=== PATIENT | male | born 1995 | race Caucasian/White ===

== ENCOUNTER 2018-01-18 13:22 | Emergency (ER) | payer OTHER ==
[2018-01-18 13:34] VITALS: BP 141/91
--- NOTE | 2018-01-18 14:36 | UC ---
General HPI - HPI Summary HPI Summary: Pt presents to and reports he has been told by his father he has been intermittently slurring his words and forgetting conversations. Pt states he does not notice, but his father has mentioned it a few times over the last several days. Pt is unsure how long the symptoms last. Pt states last episode occurred over the weekend. Pt without any complaints at time of presentation.Pt states none of the symptoms today. pt states he drove himself to without difficulty. Pt denies IZQUIERDO, vision changes. no fevers, chills, rash. No izquierdo, vision changes. No cp, sob, abd pain. No change in appetite. P Pt states he is here because his father requested he see someone. Pt has not called his PCP. Upon further discussion, pt states he does drink alcohol, at times heavily and he has blacked out in the past. Pt also states he frequently 3-5x/week drinks a benzo slurry that he gets with a friend. PT reports take 0.5-1mg at a time, but may repeat 2-3 times a day Pt states he is currently using clonazepam. Pt states he takes these substances because he "likes how they make him feel." Pt is unsure but "probably" his episodes of slurred speech and memory may have occurred when he has used these substances. Pt states he has only gotten approx 8 hours sleep in 4 days because has been catching up with friends. Pt states he is also concerned he had a concussion. Pt states he has had them 2 x in the past -last was approx 1 year ago. Pt states last week he rolled out of bed when he was sleeping and struck his head. no blood HEENT. no neck or back pain. Pt is home from college. He is waiting for a possible job offer in [place]. Pt without h/o seizures, no incontinence. No extremity weakness or paresthesias. Pt denies any friends or other interactions outside of parents noting his speech or memory. Pt reports no difficulty with texting. Pt has not noted any word finding difficulty. Pt states he does have some recollection of conversations when prompted. After further discussion, pt admits he has tried multiple different substances over the past 1-2 years "just to see" Pt shared with me a list he keeps on his phone of approximately 15 substances he has tried. Pt states he keeps the list just to know what I have tried. He denies currently being under the influence. He denies driving or operating equipment while under the influence. Pt states he uses them with his friends. Pt's has a prescription medications for acne but states does not take it. - History of Current Complaint Chief Complaint: UCGeneralIllness Stated Complaint: SLURRED SPEECH Time Seen by Provider: 01/18/18 14:32 Hx Obtained From: Patient Onset/Duration: Resolved Timing: Intermittent Episodes Lasting: - unknown Current Severity: None Associated Signs & Symptoms: Negative: Agitation - Allergy/Home Medications Allergies/Adverse Reactions: Allergies Allergy/AdvReac Type Severity Reaction Status Date / Time No Known Allergies Allergy Unverified 01/11/14 16:06 PMH/Surg Hx/FS Hx/Imm Hx Previously Healthy: Yes - Surgical History Surgical History: None - Family History Known Family History: Positive: None - Social History Occupation: Student Lives: With Family Alcohol Use: 3 days a week Substance Use Type: Marijuana Smoking Status (MU): Smoker, Current Status Unknown Review of Systems Constitutional: Fatigue Skin: Negative Eyes: Negative ENT: Negative Respiratory: Shortness Of Breath Cardiovascular: Negative Gastrointestinal: Negative Genitourinary: Negative Motor: Negative Neurovascular: Negative Musculoskeletal: Negative Neurological: Other - short term memory forgetfulness, intermittent slurring of words reported Psychological: Negative All Other Systems Reviewed And Are Negative: Yes Physical Exam Triage Information Reviewed: Yes Appearance: Well-Appearing, No Pain Distress, Well-Nourished Vital Signs: Initial Vital Signs Temp 99.1 F 01/18/18 13:28 Pulse 108 01/18/18 13:28 Resp 18 01/18/18 13:28 BP 141/91 01/18/18 13:28 Pulse Ox 100 01/18/18 13:28 Vital Signs Reviewed: Yes Eye Exam: Normal Eyes: Positive: Conjunctiva Clear ENT Exam: Normal ENT: Positive: Normal ENT inspection, Hearing grossly normal, Pharynx normal, TMs normal Dental Exam: Normal Neck exam: Normal Neck: Positive: Supple, Nontender, No Lymphadenopathy Respiratory Exam: Normal Respiratory: Positive: Chest non-tender, Lungs clear, Normal breath sounds, No respiratory distress, No accessory muscle use Cardiovascular Exam: Normal Cardiovascular: Positive: RRR - HR 96 on exam -regular, no mumurs, No Murmur Abdominal Exam: Normal Abdomen Description: Positive: Nontender, No Organomegaly, Soft Bowel Sounds: Positive: Present Musculoskeletal Exam: Normal Musculoskeletal: Positive: Strength Intact Neurological Exam: Normal Neurological: Positive: Other: - NIH 0 CN 2-12 intact and full 5/5 full AROM ext x 4 b/l equal sensation upper and lower ext + naming + recall + fnf + heel constantino neg rhomberg + heel/toe tandem walking + heel walking, toe walking Psychological Exam: Normal Diagnostics - Radiology No standard instances Radiology Interpretation Completed By: Radiologist - Mastoid air cells and paranasal sinuses are unremarkable. IMPRESSION: There is no evidence of intracranial mass or hemorrhage. Mastoid air cells and paranasal sinuses are clear. < Electronically signed by Rachael Mcelroy MD in [place]> 01/18/181512 Dictated By: Rachael Mcelroy MD Dictated Date/Time: 01/18/181512 Transcribed Date/Time: 01/18/181511 Course/Dx - Course Course Of Treatment: Pt presents with report of short term memory impairment and slurring of speech as reported by his father. Pt withotu sx today No complaints at time of exam. After much discussion, pt revealed extensive poly substance trials. pt reports sleep deprivation, ongoing used of ethanol and benzodiazepines. Pt denies mixing substances. Pt reports no use of substances over past 48 hours. Pt denies withdrawal hx. no focal findings on exam. d/w pt at length concerns for substance use, concern for mixing substances related to his personal safetly as well as those around him. will check CT head and labs. recommend close f/u with pcp. recommed 911 and ED eval if symptoms recur at the time of the episode. pt declined resources for substance use. Pt agreed to see pcp. pt stated his parents do not know - I encourage him to discuss with them. Pt encouraged to return or ED with any changes or other concerns. Pt in agreement with plan - Differential Dx - Multi-Symptom Provider Diagnoses: memory changes. slurred speech resolved. poly substance use Discharge - Sign-Out/Discharge Documenting (check all that apply): Discharge/Admit/Transfer - Discharge Plan Condition: Stable Disposition: HOME Patient Education Materials: Benzodiazepine Abuse (ED), Polysubstance Abuse (ED ), Altered Mental Status (ED) Referrals: Андрей Mares MD [Primary Care Provider] - As Soon As Possible (Call today to schedule a follow-up appointment) Additional Instructions: As discussed with you today, your exam was normal and non concerning at this visit. You head CT scan did not reveal any concerning findings You had bloodwork drawn today which may take 1-2 days to come back. If there is any concerning findings, you will receive a call from a care steam shovel operating engineer It is recommended you discontinue use of all substances - alcohol and ilicit substance. If you choose to continue using them, do NOT mix more than one substance at a time. Do not drive, operate machinery while taking them Get plenty of restful sleep Contact your primary doctor TODAY To schedule a follow-up appointment THIS WEEK It is recommended if you symptoms recur, you call 911 or go directly to the emergency department to be evaluated when they are happening. - Billing Disposition and Condition Condition: STABLE Disposition: HOME National Institutes Of Health - NIH Scale Level of Consciousness: Alert/Keenly Responsive Ask Patient the Month and His/Her Age: Both Correct Ask Pt to Open/Close Eyes and Taker Off Braker Machine/Release Non-Paretic Hand: Both Correctly Best Gaze (Only Horizontal Eye Movement): Normal Visual Field Testing: No Visual Loss Facial Paresis-Pt to Smile & Close Eyes or Grimace Symmetry: Normal/Symmetrical Motor Function - Right Arm: No Drift-Holds 10 Seconds Motor Function - Left Arm: No Drift-Holds 10 Seconds Motor Function - Right Leg: No Drift-Holds 10 Seconds Motor Function - Left Leg: No Drift-Holds 10 Seconds Limb Ataxia-Must be out of Proportion to Weakness Present: Absent Sensory (Use Pinprick to Test Arms/Legs/Trunk/Face): Normal Best Language (Describe Picture, Name Items): No Aphasia Dysarthria (Read Several Words): Normal Extinction and Inattention: No Abnormality Total Score: 0
--- NOTE | 2018-01-18 15:16 | RAD ---
Indication: Head injury. CT of the brain was performed without IV contrast. Ventricular structures are midline. No midline shift is noted. The extra-axial spaces are unremarkable. There is no evidence of intracranial mass or hemorrhage. Other high or low density lesions are identified. Mastoid air cells and paranasal sinuses are unremarkable. IMPRESSION: There is no evidence of intracranial mass or hemorrhage. Mastoid air cells and paranasal sinuses are clear.
[2018-01-18 18:42] LABS: ABS Basophils 0 10^3/ul (0-0.2); ABS Eosinophils 0 10^3/ul (0-0.6); ABS Lymphocytes 1.1 10^3/ul (1.0-4.8); ABS Monocytes 0.6 10^3/ul (0-0.8); ABS Neutrophils 6.8 10^3/ul (1.5-7.7); ABS Nucleated RBC 0 10^3/ul; Eosinophil % 0.4 % (0-6); Hematocrit 44 % (42-52); Hemoglobin 14.5 g/dl (14.0-18.0); Lymphocyte % 13.2 % (25-47); Mean Corpuscular HGB Conc 33 g/dl (31-36); Mean Corpuscular Hemoglobin 29 pg (27-31); Mean Corpuscular Volume 86 fL (80-94); Mean Platelet Volume 10.2 um3 (7.4-10.4); Nucleated Red Blood Cells % 0; Platelet Count 211 10^3/ul (150-450); Red Blood Count 5.08 10^6/ul (4.0-5.4); Red Cell Distribution Width 14 % (10.5-15); White Blood Count 8.7 10^3/ul (3.5-10.8)
[2018-01-18 18:58] LABS: EGFR Non-African American 118.1 (>60)
--- NOTE | 2018-01-19 08:46 | UC ---
- Progress Note Progress Note: CBC, CMP, TSH reviewed - all normal No change Discharge - Sign-Out/Discharge Documenting (check all that apply): Post-Discharge Follow Up - Discharge Plan Condition: Stable Disposition: HOME Patient Education Materials: Benzodiazepine Abuse (ED), Polysubstance Abuse (ED ), Altered Mental Status (ED) Referrals: Андрей Mares MD [Primary Care Provider] - As Soon As Possible (Call today to schedule a follow-up appointment) Additional Instructions: As discussed with you today, your exam was normal and non concerning at this visit. You head CT scan did not reveal any concerning findings You had bloodwork drawn today which may take 1-2 days to come back. If there is any concerning findings, you will receive a call from a care clinical team lead It is recommended you discontinue use of all substances - alcohol and ilicit substance. If you choose to continue using them, do NOT mix more than one substance at a time. Do not drive, operate machinery while taking them Get plenty of restful sleep Contact your primary doctor TODAY To schedule a follow-up appointment THIS WEEK It is recommended if you symptoms recur, you call 911 or go directly to the emergency department to be evaluated when they are happening. - Billing Disposition and Condition Condition: STABLE Disposition: HOME
== END 2018-01-18 15:30 | disposition home or self-care (01) ==
LOC: UCEAST 13:22
DX: R41.3 Other amnesia (principal); R47.81 Slurred speech; F13.90 Sedative, hypnotic, or anxiolytic use, unspecified, uncomplicated; Z72.89 Other problems related to lifestyle
CPT/HCPCS: 36415; 70450; 80053; 84443; 85025; 99211; G0463

== ENCOUNTER 2018-01-28 21:30 | Emergency (ER) | payer OTHER ==
[2018-01-28] MEDS ORDERED: NS 0.9% 1000 ML* 1,000 ML IV ONE (22:25)
[2018-01-28] MEDS ORDERED: Metoclopramide IV* 5 MG/ML 2 ML VIAL IV SLOW PU ONE (22:30)
[2018-01-28 22:39] LABS: ABS Basophils 0.1 10^3/ul (0-0.2); ABS Eosinophils 0 10^3/ul (0-0.6); ABS Lymphocytes 0.9 10^3/ul (1.0-4.8); ABS Monocytes 0.7 10^3/ul (0-0.8); ABS Neutrophils 15.3 10^3/ul (1.5-7.7); ABS Nucleated RBC 0 10^3/ul; Eosinophil % 0.1 % (0-6); Hematocrit 43 % (42-52); Hemoglobin 14.5 g/dl (14.0-18.0); Lymphocyte % 5.4 % (25-47); Mean Corpuscular HGB Conc 34 g/dl (31-36); Mean Corpuscular Hemoglobin 29 pg (27-31); Mean Corpuscular Volume 85 fL (80-94); Nucleated Red Blood Cells % 0; Platelet Count 241 10^3/ul (150-450); Red Blood Count 5.09 10^6/ul (4.0-5.4); Red Cell Distribution Width 14 % (10.5-15); White Blood Count 17.1 10^3/ul (3.5-10.8)
[2018-01-28 22:48] LABS: INR 1.06 (0.77-1.02)
[2018-01-28 22:57] LABS: EGFR Non-African American 99.9 (>60)
[2018-01-28 23:38] LABS: Urine Appearance Clear; Urine Blood 1+ (Negative); Urine Color Yellow; Urine Ketones 1+ (Negative); Urine Protein 1+(30 mg/dL) (Negative); Urine Specific Gravity 1.017 (1.010-1.030); Urine Urobilinogen Negative (Negative)
--- NOTE | 2018-01-29 00:28 | ED ---
Yaya Moore Jade, scribed for Hernan Marie MD on 01/28/18 at 2244 . Neurological HPI - HPI Summary HPI Summary: Pt is a 22 y/o male BIBA who presents to the ED s/p seizure at 20:05. As per sister and girlfriend, he fell down in the middle of a conversation and hit his head on the door. He had a tonic clonic seizure for 3-4 minutes, then twitched for another 3-4 minutes. After this, he fell asleep, waking up several times. Pt does not remember seizure, and had urinary incontinence. Pt denies PMHx seizure, but has had several concussions. Pt takes Zoloft, but did not take it today. Narcan was given by EMS. - History of Current Complaint Chief Complaint: EDSeizure Stated Complaint: SEIZURE Time Seen by Provider: 01/28/18 21:59 Hx Obtained From: Patient, Family/Surveyor Instrument Assistant - Girlfriend and sister Onset/Duration: Sudden Onset, Resolved Pain Intensity: 0 Pain Scale Used: 0-10 Numeric Character: Confusion Seizure Character: Total-Clonic Aggravating: Nothing Alleviating: Nothing Associated Signs and Symptoms: Positive: Memory Loss - Allergy/Home Medications Allergies/Adverse Reactions: Allergies Allergy/AdvReac Type Severity Reaction Status Date / Time No Known Allergies Allergy Unverified 01/11/14 16:06 Home Medications: Home Medications Sertraline* [Zoloft*] 25 mg PO DAILY 01/28/18 [History Confirmed 01/28/18] PMH/Surg Hx/FS Hx/Imm Hx Endocrine/Hematology History: Denies: Hx Diabetes Cardiovascular History: Denies: Hx Hypertension, Hx Pacemaker/ICD Sensory History: Denies: Hx Hearing Aid Psychiatric History: Denies: Hx Panic Disorder Infectious Disease History: No Infectious Disease History: Denies: Traveled Outside the [place] in Last 30 Days - Family History Known Family History: Positive: Diabetes - Social History Alcohol Use: Weekly Alcohol Amount: States doesnt remember Substance Use Type: Reports: Marijuana, Other Substance Use Comment - Amount & Last Used: Amphetamines (states doesnt remember ). Smoking Status (MU): Smoker, Current Status Unknown Review of Systems Negative: Fever Positive: incontinence - Urinary Neurological: Other - S/P seizure - confusion / memory loss (doesn't remember incident) All Other Systems Reviewed And Are Negative: Yes Physical Exam - Summary Physical Exam Summary: VITAL SIGNS: Reviewed. GENERAL: ~Patient is a well-developed and nourished male who is lying comfortable in the stretcher. Patient is not in any acute respiratory distress. Urinary incontinence. HEAD AND FACE: No signs of trauma. No ecchymosis, hematomas or skull depressions. No sinus tenderness. EYES: PERRLA, EOMI x 2, No injected conjunctiva, no nystagmus. EARS: Hearing grossly intact. Ear canals and tympanic membranes are within normal limits. MOUTH: Oropharynx within normal limits. NECK: Supple, trachea is midline, no adenopathy, no JVD, no carotid bruit, no c- spine tenderness, neck with full ROM. CHEST: Symmetric, no tenderness at palpation LUNGS: Clear to auscultation bilaterally. No wheezing or crackles. CVS: Regular rate and rhythm, S1 and S2 present, no murmurs or gallops appreciated. ABDOMEN: Soft, non-tender. No signs of distention. No rebound no guarding, and no masses palpated. Bowel sounds are normal. EXTREMITIES: FROM in all major joints, no edema, no cyanosis or clubbing. NEURO: Alert and oriented x 3. No acute neurological deficits. Speech is normal and follows commands. Neuro exam normal. SKIN: Dry and warm. Abrasions over nose and forehead. Triage Information Reviewed: Yes Vital Signs On Initial Exam: Initial Vitals Pulse Resp BP Pulse Ox 86 16 153/93 98 01/28/18 21:38 01/28/18 21:38 01/28/18 21:38 01/28/18 21:38 Vital Signs Reviewed: Yes Diagnostics - Vital Signs Vital Signs Temp Pulse Resp BP Pulse Ox 01/28/18 22:08 74 20 141/110 99 01/28/18 22:02 99.0 F 83 18 141/83 98 01/28/18 22:00 77 23 100 01/28/18 21:44 82 21 99 01/28/18 21:38 86 16 153/93 98 - Laboratory Lab Results: Lab Results 01/28/18 Range/Units 21:41 POC Glucose (mg/dL) 201 H (70-100) mg/dL Result Diagrams: 01/28/18 22:30 01/28/18 22:30 Lab Statement: Any lab studies that have been ordered have been reviewed, and results considered in the medical decision making process. - Radiology CXR Xray Interpretation: No Acute Changes - No acute process. ED physician reviewed radiology report. Pending official report. Radiology Interpretation Completed By: Radiologist - CT CT head CT Interpretation: No Acute Changes - Normal head. ED physician reviewed radiology report. Pending official results. CT Interpretation Completed By: Radiologist - EKG 21:45 Cardiac Rate: NL - 79 bpm EKG Rhythm: Sinus Rhythm EKG Interpretation: Normal axis. Normal interval. No ischemic changes. Re-Evaluation - Re-Evaluation First Eval Re-Evaluation Time: 13:40 Change: Unchanged Comment: No further seizures in the Ed, talked about labs and imaging results. This was his first seizure in his life. Discharged home for neurology appointment on Wednesday. Currently not on anti-seizure meds, advised not to take Zoloft until cleared by neurologist.Not to drive or operate heavy machines. Course/Dx - Course Course Of Treatment: Pt is a 22 y/o male BIBA who presents to the ED s/p seizure at 20:05. As per sister and girlfriend, he fell down in the middle of a conversation and hit his head, and had a tonic clonic seizure for 3-4 minutes, then twitched for another 3-4 minutes. He then fell asleep, waking up several times. Pt does not remember seizure, and had urinary incontinence. Pt denies PMHx seizure, but has had several concussions. Pt takes Zoloft, but did not take it today. Narcan was given by EMS. A CT head reveals no acute process. An EKG reveals normal rate at 79 bpm, sinus rhythm, normal axis, normal intervals, and no ischemic changes. In the ED course, pt was given Reglan and fluids. Patient will be discharged) with a final Dx of new onset seizure. Pt is to hold on taking Zoloft, and is not to drive or operate heavy machinery. He is consult with neurologist on Wednesday. Pt is agreeable with this plan. - Diagnoses Provider Diagnoses: New onset seizure Discharge - Sign-Out/Discharge Documenting (check all that apply): Discharge/Admit/Transfer - Discharge - Discharge Plan Condition: Stable Disposition: HOME Patient Education Materials: New-Onset Seizure in Adults (ED) Referrals: Андрей Mares MD [Primary Care Provider] - 3 Days Julien Dee MD [Medical Doctor] - 3 Days Additional Instructions: RETURN TO EMERGENCY DEPARTMENT FOR ANY NEW OR WORSENING SYMPTOMS. HOLD ON TAKING ZOLOFT. DO NOT DRIVE OR OPERATE HEAVY MACHINES. CONSULT WITH NEUROLOGIST. The documentation as recorded by the Yaya white Jade accurately reflects the service I personally performed and the decisions made by me, Hernan Marie MD.
[2018-01-29 00:33] VITALS: BP 139/81
--- NOTE | 2018-01-29 08:26 | RAD ---
INDICATION: Seizure COMPARISON: None. TECHNIQUE: Single AP portable view of the chest was obtained. FINDINGS: Image quality is compromised due to the relative inferiority of a portable chest x-ray. The heart and mediastinum exhibit normal size and contour. The lungs are grossly clear. There is no evidence of a large pleural effusion. Visualized bones are normal for the patient's age. IMPRESSION: No radiographic evidence for acute cardiopulmonary abnormality on this portable chest x-ray.
--- NOTE | 2018-01-29 08:27 | RAD ---
INDICATION: Suspected seizure COMPARISON: None. TECHNIQUE: Contiguous axial sections of the brain were obtained from the skull base to the vertex without contrast. FINDINGS: The ventricles, cisterns and sulci are within normal limits. The hale-white matter differentiation is adequately maintained and there is no sulcal effacement. No significant focal abnormality or mass effect is present. There is no evidence for intracranial hemorrhage. No significant focal osseous abnormality is present. The visualized portion of the paranasal sinuses appear clear. The mastoid air cells are well aerated bilaterally. IMPRESSION: Normal CT of the brain.
== END 2018-01-29 00:32 | disposition home or self-care (01) ==
LOC: ED 21:30
DX: R56.9 Unspecified convulsions (principal); R41.3 Other amnesia; Z72.0 Tobacco use; R41.0 Disorientation, unspecified
CPT/HCPCS: 36415; 70450; 71045; 80053; 80307; 80320; 81003; 81015; 82550; 83605; 83735; 84443; 85025; 85610; 85730; 87086; 93005; 96361; 96374; 99283; G0480; J2765

== ENCOUNTER 2019-11-20 16:04 | Inpatient (IN) | payer OTHER ==
--- NOTE | 2019-11-20 16:12 | ED ---
Neurological HPI - HPI Summary HPI Summary: Patient is a 24 year-old male arriving via ambulance to [facility] for status epilepticus since 1500. Patient has a history of seizures and is compliant with Depakote prescription. He came back from [place] two days ago after self- quarantining for the last two weeks before returning home. Patient was experiencing his fourth seizure in 30 minutes when EMS arrived, as reported by the family. EMS administered 5mg Versed before placing him on the stretcher. Patient continued seizing, and they administered another 5mg Versed. Patient still seizing so a third dose of Versed was given at 1550 with relief of the convulsions without any seizures since. Capnography initially at 80 but improved to 40. Bilateral nasal airways. Respiratory rate 23 rpm upon arrival. Blood pressure 180/80 mmHg. Sinus tachycardia during transport. Blood glucose 140. Patient reported to have upcoming neurology appointment for re-evaluation of driving as he has not had a seizure in a year. LEVEL 5 CAVEAT SECONDARY TO UNRESPONSIVENESS. History obtained from EMS. Will speak with family (see re-evals). - History of Current Complaint Stated Complaint: UNRESPONSIVE PER EMS Hx Obtained From: Family/Flyer Maker, EMS Hx From Patient Unobtainable Due To: Other - level 5 caveat secondary to unresponsiveness Onset/Duration: Started minutes ago - 1500, Resolved Timing: Constant Onset Severity: Severe Seizure Severity: Status Epilepticus Number of Seizures: 6 Seizure Character: Total-Clonic Alleviating: Other - 15mg Versed total Associated Signs and Symptoms: Positive: Seizure, Decreased Level of Consciousness Related Hx: Medication Comliant, Seizure - Allergy/Home Medications Allergies/Adverse Reactions: Allergies Allergy/AdvReac Type Severity Reaction Status Date / Time No Known Allergies Allergy Verified 03/09/18 10:09 Home Medications: Home Medications Divalproex ER TAB(*) [Depakote ER TAB(*)] 500 mg PO BEDTIME 11/20/19 [History Confirmed 11/20/19] PMH/Surg Hx/FS Hx/Imm Hx Endocrine/Hematology History: Denies: Hx Diabetes Cardiovascular History: Denies: Hx Hypertension - WHITE COAT HYPERTENSION ONLY - NO MEDS, Hx Pacemaker/ICD Respiratory History: Denies: Hx Asthma History: Denies: Hx Renal Disease Sensory History: Denies: Hx Hearing Aid Neurological History: Reports: Hx Seizures Psychiatric History: Denies: Hx Panic Disorder - Surgical History Surgical History: Yes Surgery Procedure, Year, and Place: TUBES IN EARS X 3 - Family History Known Family History: Positive: Diabetes - Social History Alcohol Amount: history of abuse Hx Substance Use: Yes Substance Use Type: Reports: Marijuana, Other Substance Use Comment - Amount & Last Used: history of polysubstance abuse including amphetamines/benzodiazepines Smoking Status (MU): Smoker, Current Status Unknown Review of Systems Neurological/Mental Status: Other - status epilepticus, total clonic All Other Systems Reviewed And Are Negative: No - Comments Additional Review of Systems Comments: LEVEL 5 CAVEAT SECONDARY TO UNRESPONSIVENESS Physical Exam - Summary Physical Exam Summary: General: Well appearing, Unresponsive HENT: Bilateral nasal trumpets in, Atraumatic Eyes: Pupils responsive bilaterally Cardiovascular: Skin is well perfused, Tachycardia at 124 BPM Pulmonary: No respiratory distress, no tachypnea Abdomen: Non-distended Skin: Warm, pink, dry Psych: Unable to assess Neuro: Muscle tone is normal, GCS: 6 (see scale) Triage Information Reviewed: Yes Vital Signs Reviewed: Yes - Mitchell Coma Scale Best Eye Response: 1 - None Best Motor Response: 4 - Withdraws Best Verbal Response: 1 - None Coma Scale Total: 6 Procedures - Procedure Summary Procedure Summary: Intubation: [done at 17:00] Patient under RSI. Video laryngeal glidescope used. Lens occluded, proceeded to use backup device, Justin 3. ET tube advanced, small amount of blood in airway. Patient required second round of RSI due to equipment failure. - Sedation Patient Received Moderate/Deep Sedation with Procedure: No Diagnostics - Laboratory Result Diagrams: 11/20/19 16:25 11/20/19 16:25 Lab Statement: Any lab studies that have been ordered have been reviewed, and results considered in the medical decision making process. - Radiology CXR Radiology Interpretation Completed By: Radiologist Summary of Radiographic Findings: Impression: No active cardiopulmonary disease is noted. Dr. Peralta has reviewed this report. - CT Head/Neck CTA CT Interpretation Completed By: Radiologist Summary of CT Findings: Head Impression: No hemodynamically significant stenosis or large vessel occlusion. Neck Impression: No stenosis (0%) or dissection. Dr. Peralta has reviewed this report. - EKG 1620 Cardiac Rate: Tachycardia - 115 EKG Rhythm: Sinus Tachycardia Summary of EKG Findings: An EKG at 1620 reveals sinus tachycardia at rate of [address] depressions. No STEMI. Dr. Peralta has reviewed and interpreted this EKG. Re-Evaluation - Re-Evaluation First Eval Re-Evaluation Time: 16:35 Comment: Patient agitated, swinging left arm, right arm appears to hemiparetic. Second Eval Re-Evaluation Time: 16:45 Comment: Spoke with the patient's family concerning his presentation today. Family reports that at approximately 1500, the patient had 3 seizures at home, full body tonal-clonic activity from which he did not recover. On October 30, he saw his new neurologist in [place] and was cleared to drive. Parents state good medication compliance, taking Depakote regularly. Had two glasses of wine two nights ago but doesnt drink often. Remote history of benzodiazepine abuse. Regular marijuana use. Has otherwise been in good health. Just got back from [place] on 11/18/2019. He was quarantining himself for the last two weeks to protect his parents. Received verbal consent from parents for intubation. Third Eval Re-Evaluation Time: 17:35 Comment: Patient still thrashing around, increased Propofol Fourth Eval Re-Evaluation Time: 18:40 Comment: Called back to room. Patient is still very agitated, and he apparently was agitated in CT. They are attempting to place a lim and perform EEG. Will administer paralytics at this point, Versed and Versed drip. Fifth Eval Re-Evaluation Time: 21:00 Change: Unchanged - Parents note girlfriend reports highly agitated post ictal states in the past. Also Keppra makes him irritable in previous situations. Course/Dx - Course Course Of Treatment: 24 year-old male who has history of seizures but none in the last year with Depakote compliance arriving via ambulance for multiple seizures occurring for 30 minutes before EMS arrived. Subsequent seizures during transport resolving only after third dose of 5mg Versed administered en route. Recent travel from [place] with return 11/18/2019 with self-isolation for last two weeks to keep parents safe. EMS states glucose 140, blood pressure 140, respiratory rate 23, sinus tachycardia. On physical exam in the ED, pupils are responsive bilaterally, muscle tone is normal, heart rate is 124, bilateral nasal trumpets. Family reports 3 tonic clonic seizures prior to EMS arriving. Good Depakote compliance, no recent illnesses, history of drug use, cleared to drive by neurologist in [place] on 10/31/2019. Patient placed on alarm security or surveillance monitor. IV access obtained. Patient received Ativan, Propofol, and Fentanyl. Patient also given 2g Keppra as recommended by Dr. Jackson from neurology. He also recommends EEG which he will call in the tech for. We will consider transfer as needed depending on results. Blood work significant for WBCs 20.7, absolute neutrophils 13.7, absolute lymphocytes 6.0, INR 1.12, chloride 95, carbon dioxide 12, creatinine 1.34, glucose 191, lactic acid 20. Valproic acid 29. Patient given Valproic acid. ABG shows pH 7.28, pO2 278, HCO3 17.9, O2 saturation 100, base excess -9. EKG at 1620 reveals sinus tachycardia at rate of 115 BPM, lateral ST depressions. Patient agitated and intubated with RSI ( see procedure note). Patients family gave verbal consent for intubation. Patient received second round of RSI due to equipment failure. CXR is negative for acute pathology. Dr. Dodd, the patients PCP, states significant alcohol abuse issues and polysubstance abuse including amphetamines. Serum alcohol <10. Patient continues to be agitated even in CT, plan for lim placement and EEG. Will administer paralytics at this point, Versed and Versed drip. Head/Neck CTA is negative for acute abnormality. Urinalysis shows 1+ ketones but is otherwise negative. Toxicology screen positive for benzodiazepines and cannabinoids. Dr. Jackson reports no active seizure activity on the EEG. 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 There is no need for transfer at this time. We agreed on ICU monitoring for this patient. Dr. Small from the hospitalist services accepts the patient for admission to the ICU. Dr. Delaney, chef under, made aware of the patient. Plan of care discussed with patients family. - Diagnoses Provider Diagnoses: Status epilepticus, Seizure secondary to subtherapeutic anticonvulsant medication - Physician Notifications Discussed Care Of Patient With: Marie Jackson - neurologist Time Discussed With Above Provider: 16:30 Instructed by Provider To: Other - I discussed the patient's case with Dr. Jackson , and he will come to the ED to evaluate the patient. He will call the technical sales support specialist to come in. Dr. Jackson also recommends urine tox screen and Keppra. I spoke with Dr. Dodd, the patient's PCP, and she states that the patient has a significant alcohol and polysubstance abuse history, including amphetamines [18: 00]. Dr. Jackson states the EEG results do not warrant transfer; there is no active seizing, likely Karthik's paralysis. We agree on ICU monitoring [20:05]. Dr. Small from the hospitalist services accepts the patient for admission to the ICU [20:12]. Dr. Delaney, chef under, made aware of the patient [20:15]. - Critical Care Time Critical Care Time: 75-104 min - 90 MINUTES Discharge ED - Sign-Out/Discharge Documenting (check all that apply): Patient Departure - Patient accepted for admission by Dr. Small to ICU. - Discharge Plan Condition: Stable Disposition: ADMITTED TO [facility] Referrals: Louisa Dodd MD [Primary Care Provider] - - Billing Disposition and Condition Condition: STABLE Disposition: Admitted to [facility] - Attestation Statements Document Initiated by Radha: Yes Documenting Scribe: Dolores Dorsey Provider For Whom Davide is Documenting (Include Credential): Karthik Peralta MD Scribe Attestation: I, Dolores Dorsey, scribed for Karthik Peralta MD on 11/20/19 at 2118. Scribe Documentation Reviewed: Yes Provider Attestation: The documentation as recorded by the Dolores white accurately reflects the service I personally performed and the decisions made by me, Karthik Peralta MD Status of Scribe Document: Viewed
[2019-11-20] MEDS ORDERED: levETIRAcetam 1000MG IVPREMIX* 1,000 MG/100 ML BAG IVPB ONE ×2 (16:27→16:50)
[2019-11-20] MEDS ORDERED: LORazepam INJ* 2 MG/ML 1 ML VIAL IV PUSH ONE (16:30)
[2019-11-20] MEDS ORDERED: Lorazepam PYXIS KEY PRN (16:30)
[2019-11-20 16:39] LABS: Hematocrit 46 % (42-52); Hemoglobin 14.9 g/dL (14.0-18.0); Mean Corpuscular HGB Conc 32 g/dL (31-36); Mean Corpuscular Hemoglobin 29 pg (27-31); Mean Corpuscular Volume 91 fL (80-94); Mean Platelet Volume 10.7 fL (7.4-10.4); Platelet Count 291 10^3/uL (150-450); Red Blood Count 5.11 10^6 /uL (4.18-5.48); Red Cell Distribution Width 14 % (10-15); White Blood Count 20.7 10^3/uL (3.5-10.8)
[2019-11-20 16:45] LABS: INR 1.12 (0.82-1.09)
[2019-11-20] MEDS ORDERED: Propofol* 100 ML ONE ×3 (16:47→23:01)
[2019-11-20] MEDS ORDERED: Succinylcholine* 20 MG/ML 10 ML VIAL IV ONE ×2 (16:47→18:50)
[2019-11-20] MEDS ORDERED: Propofol* 10 MG/ML 20 ML BTL IV PUSH ONE ×2 (16:47→18:49)
[2019-11-20 16:55] LABS: ALT 15 U/L (7-52); AST 30 U/L (13-39); Albumin 5.2 g/dL (3.2-5.2); Albumin/Globulin Ratio 1.8 (1-3); Alkaline Phosphatase 65 U/L (34-104); BUN/Creatinine Ratio 14.2 (8-20); Blood Urea Nitrogen 19 mg/dL (6-24); Calcium 10.2 mg/dL (8.6-10.3); Chloride 95 mmol/L (101-111); EGFR African American 80.7 (>60); EGFR Non-African American 66.7 (>60); Globulin 2.9 g/dL (2-4); Glucose 191 mg/dL (70-100); Magnesium 2.7 mg/dL (1.9-2.7); Potassium 4.3 mmol/L (3.5-5.0); Sodium 136 mmol/L (135-145); Total Protein 8.1 g/dL (6.4-8.9)
[2019-11-20 17:03] LABS: Anion Gap 29 mmol/L (2-11); CO2 Carbon Dioxide 12 mmol/L (22-32)
[2019-11-20] MEDS: Propofol* 100 ML IV ONE ×2 (17:07→23:04)
[2019-11-20 17:10] LABS: ABS Basophils 0.1 10^3/ul (0-0.2); ABS Eosinophils 0.1 10^3/ul (0-0.6); ABS Monocytes 0.9 10^3/ul (0-0.8); ABS Neutrophils 13.7 10^3/ul (1.5-7.7); Eosinophil % 0.3 %; Lymphocyte % 29.1 %; Nucleated Red Blood Cells % 0.1
[2019-11-20] MEDS ORDERED: fentaNYL* 50 MCG/ML 2 ML VIAL (100 MCG VIAL) IV SLOW PU ONE (17:33)
[2019-11-20] MEDS ORDERED: fentaNYL INFUSION 50 MCG/ML* 2,500 MCG/50 ML BAG IV SCH (18:00)
[2019-11-20] MEDS ORDERED: Valproic Acid IV(*) 500 MG in NS 0.9% 100 ML* 100 ML IVPB ONE (18:03)
[2019-11-20] MEDS ORDERED: Iohexol 350* (CONTRAST) 500 ML MDV IV ONE (18:07)
[2019-11-20 18:48] LABS: Alcohol < 10 mg/dL (<10)
[2019-11-20] MEDS ORDERED: Rocuronium* 10 MG/ML VIAL IV ONE (18:54)
[2019-11-20] MEDS ORDERED: Midazolam* 1 MG/ML 5 ML VIAL (5 MG) IV SLOW PU ONE (18:54)
[2019-11-20] MEDS: Midazolam IV for DRIP* 100 MG in NS 0.9% 100 ML* 80 ML IV SCH (19:30)
[2019-11-20 19:34] LABS: Urine Appearance Turbid; Urine Bilirubin Negative (Negative); Urine Blood Negative (Negative); Urine Color Straw; Urine Glucose Negative (Negative); Urine Ketones 1+ (Negative); Urine Nitrite Negative (Negative); Urine Protein Negative (Negative); Urine Specific Gravity 1.019 (1.010-1.030); Urine Urobilinogen Negative (Negative)
[2019-11-20 19:53] LABS: Urine Benzodiazepine Screen Presumptive Positive (None Detect); Urine Opiates Screen None Detected (None Detect)
[2019-11-20] MEDS ORDERED: NS 0.9% 1000 ML** 2,000 ML IV ONE (20:05)
[2019-11-20 20:21] LABS: Creatine Kinase 132 U/L (10-223)
[2019-11-20 21:17] LABS: Phosphorus 10.5 mg/dL (2.5-5.0)
--- NOTE | 2019-11-20 21:25 | EEG ---
ELECTROENCEPHALOGRAPHY: DATE OF STUDY: 11/20/19 - ROOM #ICU-15 ORDERED BY: Marie Jackson MD CLINICAL PROBLEM: A 24-year-old man who presented with prolonged generalized convulsions. This EEG was obtained to evaluate for nonconvulsive status epilepticus. MEDICATIONS: 1. Propofol. 2. Versed. 3. Fentanyl. 4. Keppra. 5. Depakote. DURATION OF THE [id number]. CLINICAL STATE: Encephalopathic. REPORT: The most prominent feature of this recording included diffuse, polymorphic, medium to higher amplitude 2-9 Hz alpha, theta, and delta range frequencies with superimposed 1-2 Hz seen diffusely throughout the recording. Centrally, there were sleep spindles and vertex waves seen intermittently throughout the recording, which suggest stage 2 sleep. Furthermore, waking background was not seen during the recording, but there was some reactivity with the EEG background. There were no electrographic seizures in terms of rhythmicity or evolution of the frequency. Photic stimulation and hyperventilation were not performed. EEG showed sinus tachycardia. CLINICAL IMPRESSION: This is an abnormal EEG due to the presence of diffuse slowing of the background with no evidence of electrographic seizures. These findings are suggestive of mild to moderate diffuse encephalopathy which can be due to sedation and postictal state. [id number]/[facility] #: [id number] [facility]
[2019-11-20] MEDS: fentaNYL INFUSION 50 MCG/ML* 2,500 MCG/50 ML BAG IV SCH (22:15)
[2019-11-21] MEDS: CHLORHEXADINE (PERIDEX) VENT ORAL CARE TOPICAL SCH ×8 (00:16→23:35)
--- NOTE | 2019-11-21 00:24 | CONS ---
NEUROLOGY CONSULTATION NOTE: DATE OF CONSULT: 11/20/19 CONSULTING PROVIDER: Dr. Peralta. REASON FOR CONSULT: Status epilepticus. CHIEF COMPLAINT: Seizures. The history was obtained by the patient's mother, father, and sister Estela via telephone HISTORY OF PRESENT ILLNESS: Mr. 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 The patient has been seizure-free for the past 1 year on extended release Depakote 500 mg twice daily. . The patient was in [place] visiting his long-standing girlfriend. He has been quarantined for 14 days in [place], just to be safe before driving back home. He recently drove to [place] where he resides. He is staying with his parents while trying to find a job. According to his mother, New was in normal state of health as of two days ago (Wednesday). He was reported to be very pleasant, went on a car ride with his mother, and he seemed normal and like his usual self. He is applying to jobs around the area and he has been working on new [employer] to continue improving his skills. He drinks occasionally and smokes marijuana regularly. According to the family, there is no history of polysubstance abuse. The patient recently saw a neurologist 3 weeks ago in [place], who cleared him to start driving again. The patient had multiple seizures witnessed by the patient's sister, Estela today. According to Estela, the patient was coming up the stairs to get some water. After he drank water, he walked towards the door to head back down stairs when he suddenly began screaming out loud and then stumbled over to the wall and leaned over on his sister. He never fell. He never hit his head. He began convulsing for at least 3 minutes. He had continuous shaking of both legs. He then had a postictal confusion and minimal responsiveness for 8 to 10 minutes. Following that, he had seizure 2 and seizure 3 back to back, where he was having generalized convulsions, eyes deviating towards the right, head deviating towards the right, uncontrollable shaking of the extremities, urinary incontinence, for approximately 18 to 20 minutes. EMS was contacted and the patient continued to have seizures in the EMS. It was estimated that the patient had at least 30-40 minutes of generalized convulsions. Via EMS, he received 5 mg of Versed, but he continued to have seizures. His heart rate was significantly high. His blood pressure was elevated. His blood glucose was 140. He was unresponsive. He was loaded with Ativan and repeated doses of Versed in the ED with minimal effect. He was loaded with the 1000 mg of levetiracetam and then once I was consulted I gave him another gram of levetiracetam for a total of 2 g. The patient had received also valproic acid 500 mg as well as multiple doses of lorazepam. Eventually, due to the patient's intermittent seizures that he was still having, rigors and tachycardia, he was intubated and started on propofol and Versed. He required muscle paralytics, so he can have the EEG as he was still moving despite max dose of propofol and Versed. The CT and the CTA head and neck showed no evidence of acute intracranial abnormality. He had an EEG that showed diffuse slowing suggestive of mild encephalopathy with some sleep spindles recorded suggesting that the patient was in stage II sleep. There was no electrographic seizures. Laboratory: The patient had an white count of 20,000, and a lactic acid of 20. Again, the family noted that the patient never had any fevers, complained of headaches, prior to having this breakthrough seizure. Urine tox screen showed positive for benzodiazepines and cannabinoids. Please note that the patient did receive benzodiazepine en route. His valproic acid level as low at 29. Seizure history and risk factors: The patient had head injury 7 years ago where he hit his head on the cement after a fall bumping into the back of the head. Following that he was seeing spots of light. Three to four years later, he developed his first seizure. He did have an MRI of the brain as well as an EEG in 2018 that showed no evidence of acute intracranial abnormalities. He was kept on Depakote for suspected seizures. The patient was on Keppra at some point and was switched to Depakote because he did not like how he felt while on Keppra. The exact side effect related to Keppra is unknown from the family. PAST MEDICAL HISTORY: Seizure disorder. PAST SURGICAL HISTORY: None. MEDICATIONS: Depakote 500 mg twice daily. FAMILY HISTORY: Mother had petit mal seizures as a child. SOCIAL HISTORY: He lives with his parents. He is looking for a job. Smokes marijuana. He drinks alcohol occasionally. There were some report by the patient's PCP where the patient does have a history of alcohol abuse and he also abuses amphetamines. REVIEW OF SYSTEMS: Unable to obtain. PHYSICAL EXAMINATION: Vitals: Temperature of 99.5, pulse heart rate of 87, respiratory rate of 18, oxygen saturation of 100, blood pressure of 118/70. General: An ill-appearing man, in no acute distress. He is intubated. Head: Atraumatic, normocephalic without any obvious abnormality. Neck is supple and symmetrical with no carotid bruit. Cardiovascular: Sinus tachycardia. No murmurs. Pulmonary: Clear to auscultation bilaterally. Extremities: No hammertoes or high arches. Skin: No skin lesions or lacerations. Psych: Deferred. Neurological Examination: The patient was seen prior to intubation, but then immediately was intubated. Pupils equal, round, reactive to light. Extraocular muscles are intact. There is no facial asymmetry. The patient has weakness on the right upper and right lower extremities. He is spontaneously moving the left and can move the right upper extremity, but definitely no to command. He was purposeful in trying to remove the nasal trumpet. ASSESSMENT AND RECOMMENDATIONS: Mr. New Gomes is a 24-year-old man who presented with status epilepticus and right hemiparesis suspect Karthik's paralysis. The etiology is unclear, but possible he is on low dose of his seizure medications, sleep deprivation, or poor seizure medication compliance are potential causes. Other potential causes include drug toxication, possible synthetic marijuana use as he smokes marijuana daily. These are all assumption and not confirmed from the family's history. The patient is currently not in nonconvulsive status epilepticus. He does not have signs of infection as he is afebrile and had no preceding illness. I recommend admitting the patient to the ICU. Please repeat an EEG in the morning. I will start the patient on Depakote 1000 mg loading dose now and to continue him on 500 mg t.i.d. Wean off the sedation after the EEG tomorrow to see if he can follow command. If he has recurrence in seizures or he is not recovering fast enough or if he persist to have right hemiparesis, I recommend doing an MRI of the brain without contrast to evaluate for PRES. Please repeat a lactic acid level. He does not have any evidence of significant electrolyte imbalance to suspect other causes for his seizures. Please obtain a phosphorus level, which I have ordered. I will continue to follow. I discussed these recommendations with Dr. Peralta and Dr. Delaney. Please provide frequent updates to the family as they are extremely concerned that they cannot be at bedside with the patient at this time. I will also contact the family for update tomorrow from the neurology standpoint. Please contact me any time for any questions or concerns. [id number]/[facility] #: [id number] ANNE MARIE
[2019-11-21] MEDS: NS 0.9% 1000 ML** 1,000 ML IV SCH ×3 (00:38→17:34)
[2019-11-21] MEDS: Propofol* 100 ML IV ONE (01:11)
[2019-11-21] MEDS ORDERED: Propofol* 100 ML ONE (03:11)
[2019-11-21] MEDS: Propofol* 100 ML IV SCH ×8 (03:55→23:31)
[2019-11-21] MEDS ORDERED: Valproic Acid IV(*) 500 MG in NS 0.9% 100 ML* 100 ML IVPB SCH (04:00)
--- NOTE | 2019-11-21 04:44 | HP ---
HISTORY AND PHYSICAL: DATE OF ADMISSION: HISTORY OF PRESENT ILLNESS: This is a 24-year-old male with past medical history of seizures, polysubstance abuse presented to the ED with chief complaint of status epilepticus at 1500 hours. The patient as already stated has a history of seizures and is said to be compliant with Depakote prescription 500 mg at bedtime. It was stated that the patient came back from [place] 2 days ago after self-quarantining for the last 2 weeks before returning home. It was also stated that the patient had 3 seizures at home and then when EMS was called, he had one when EMS was attending to him in the vehicle and he came to the ED. EMS administered 5 mg Versed before placing him on the stretcher. The patient continued to seize and administered a second dose , the patient was still seizing, and administered the third dose at 1500 with relief of the convulsions. When the patient arrived in the ED, it was also reported that he had another seizure in the ED and a total of 5 seizures and since then, there have not been any seizure after when he seized in the ED. Blood pressure on arrival 180/80. EMS stated that he had a sinus tachycardia during transportation to the ED with blood glucose of 140. It was reported that the patient was looking forward to an appointment that was booked with Neurology for reevaluation of his driving status as he has not had any seizure in the past year. History was from record, as the patient was intubated and fully sedated. In the ED, Neurology was consulted, who gave the order to give the patient Keppra. 2 g of Keppra IV were giving total in the order of 1 g after each and the patient was placed on Versed drip, propofol drip, and a fentanyl drip in order to sedate him as he was highly agitated. Toxicology positive for benzodiazepines and cannabinoids. Neurology ordered an EEG and examination on arrival was started. 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 PAST MEDICAL HISTORY: Seizure disorder, polysubstance abuse, alcohol abuse, current smoker. PAST SURGICAL HISTORY: Tubes in ears x3. HOME MEDICATION: Depakote ER 500 mg at bedtime. ALLERGIES: No known drug allergies. FAMILY HISTORY: Positive for diabetes. SOCIAL HISTORY: Alcohol use: Amount unknown. Substance use: Marijuana, amphetamines. He is a smoker; current status, unknown. REVIEW OF SYSTEMS: Negative for fever. Status post seizure, confusion, postictal state, decreased level of consciousness, status epilepticus, tonic clonic. All other systems reviewed are negative or as recorded in HPI. PHYSICAL EXAMINATION GENERAL: Sedated, intubated, but well appearing and unresponsive. VITAL SIGNS: Temperature 98.1, heart rate 86, respiratory rate 17, O2 saturation 99%, blood pressure 110/51. HEAD and FACE: No signs of trauma. No ecchymosis. No hematomas or skull depressions. No sinus tenderness. Pupils responsive bilaterally. No injected conjunctivae. Mouth, the patient intubated. NECK: Supple. No JVD. No carotid bruit. CHEST: Chest clear to auscultation bilaterally. No wheezing, no crackles. CARDIOVASCULAR: S1, S2 heard. Regular rate and rhythm. No murmurs or gallops are appreciated. ABDOMEN: Soft, nondistended, nontender. No palpable masses. Bowel sounds normal in all 4 quadrants. NEUROLOGIC: Muscle tone is normal. PSYCHIATRIC: Unable to assess. SKIN: Warm, dry, no rashes. DIAGNOSTIC STUDIES/LAB DATA: Hematology: WBC 20.7, RBC 5.11, hemoglobin 14.9 , hematocrit 46, MCV 91, MCH 29, MCHC 32, RDW 14, platelet count 291, MPV 10.7, neutrophils 65.9, absolute neutrophils 13.7, absolute lymphocytes 6.0, absolute monocytes 0.9. Hematopathologist's comments pending. Chemistry: Sodium 136, potassium 4.3, chloride 95, carbon dioxide 20, anion gap 29, BUN 19, creatinine 1.34, estimated GFR non- 56.7, BUN and creatinine ratio of 1.42 , glucose 191, lactic acid 20.0, calcium 10.2, phosphorus 10.5, magnesium 2.7. Total bilirubin 0.7, AST 30, ALT 15, alkaline phosphatase 16, total creatine kinase 132, total protein 8.1, albumin 5.2, globulin 2.9. Blood gas: Initial ABG, pH 7.28, repeat after intubation 7.33; PCO2 initial 36, repeat after intubation 34; PO2 initial 278, after intubation 178; bicarbonate initial 17.9, repeat after intubation 19.4; O2 saturation 100%; base excess initial -9.0, repeat after intubation -7.1. Coagulation studies: INR 1.12. Toxicology: Benzodiazepine presently positive, cannabinoids presently positive, valproic acid 29.0. Opiates, other barbiturates, phencyclidine, amphetamine, cocaine nondetected. Serum alcohol level less than 10. Electroencephalogram, clinical impression: This is an abnormal EEG in a comatose patient, who recently had status epilepticus that showed diffuse slowing of the background with no evidence of electrographic seizures. These findings are suggestive of [id number] diffuse encephalopathy, which can be due to postictal state. Head CTA, impression: No stenosis or dissection. EKG showed sinus tachy at 99, borderline ST depression in the lateral leads. ASSESSMENT AND PLAN: A 24-year-old male with a known history of seizures, stated to be compliant with his medication of 500 mg Depakote at bedtime and also a known history of polysubstance abuse presented to the ED with chief complaint of multiple seizures occurring for 30 minutes before arrival to the ED, subsequent seizure during transportation resolved after third dose of 5 mg Versed was administered. Recent travel from [place] and the return with self- isolation for the past 2 weeks for COVID. The patient will be admitted to the unit with the diagnosis of status epilepticus, seizure disorder, leukocytosis, and dehydration. For the status epilepticus and seizure, the patient already received 2 g of Keppra IV per Neurology recommendations. The patient is already sedated with propofol, Versed, and also receiving fentanyl drip. We will continue with the patient's home med that I will give IV 500 mg b.i.d. and follow up with Neurology evaluation. Follow up with a.m. labs. The patient will be n.p.o. at the moment and will be receiving IV fluid at maintenance dose of 125 mL/hour, already received 2 L bolus in the ED. Monitor lactic acidosis. For leukocytosis, no source of infection is noted at this moment. Leukocytosis could be reactionary to seizure, as a result of polysubstance abuse. We will monitor. No pyrexia noted. Polysubstance abuse. torpedo worker consult to discuss situation when the patient is awake. The patient will be full code at this time. Diet: Regular diet when the patient will take p.o. The patient is n.p.o. at the moment. DVT prophylaxis: SCDs. Fluids and electrolytes: Replete as needed. The patient is COVID rule out. We will maintain on isolation per protocol. TIME SPENT: Time spent on this admission greater than 65 minutes. [id number]/[facility] [place] #: [id number] ANNE MARIE
[2019-11-21 05:11] LABS: ABS Basophils 0.1 10^3/ul (0-0.2); ABS Lymphocytes 2.1 10^3/ul (1.0-4.8); ABS Monocytes 1.5 10^3/ul (0-0.8); ABS Neutrophils 9.6 10^3/ul (1.5-7.7); Hematocrit 41 % (42-52); Hemoglobin 13.4 g/dL (14.0-18.0); Lymphocyte % 16.1 %; Mean Corpuscular HGB Conc 33 g/dL (31-36); Mean Corpuscular Hemoglobin 29 pg (27-31); Mean Corpuscular Volume 87 fL (80-94); Mean Platelet Volume 10.1 fL (7.4-10.4); Platelet Count 198 10^3/uL (150-450); Red Blood Count 4.65 10^6 /uL (4.18-5.48); Red Cell Distribution Width 14 % (10-15); White Blood Count 13.3 10^3/uL (3.5-10.8)
[2019-11-21 05:28] LABS: BUN/Creatinine Ratio 15.9 (8-20); Calcium 8.6 mg/dL (8.6-10.3); EGFR Non-African American 108.3 (>60); Magnesium 2.5 mg/dL (1.9-2.7); Phosphorus 4.7 mg/dL (2.5-5.0); Potassium 4.3 mmol/L (3.5-5.0)
--- NOTE | 2019-11-21 08:56 | PN ---
Subjective Date of Service: 11/21/19 Length of Stay: 1 Days Neurology is following for status epilepticus. Interval History: On isolation due to pending COVID testing. PPE utilized to examine the patient today. He seems to be comfortable. He is no longer shaking, trembling, or uncontrollably moving his head. He is on Propofol, Versed, and fentanyl. After holding propofol for 5 minutes, he was moving his head slowly and opening his eyes. He had no reported convulsions yesterday. Review of Systems: The patient cannot provide a ROS. Objective Active Medications: Chlorhexidine Gluconate (Peridex Mouth Wash 0.12%*) 15 ml [facility]H [facility] Last Admin: 11/21/19 08:20 Dose: 15 ml Midazolam HCl 100 mg/ Sodium (Chloride) 100 mls @ 2.5 mls/hr IV .PER PROTOCOL [facility]; Protocol Last Admin: 11/20/19 19:30 Dose: 2.5 mls/hr Sodium Chloride (Ns 0.9% 1000 Ml) 1,000 mls @ 125 mls/hr IV PER RATE [facility] Last Admin: 11/21/19 08:20 Dose: 125 mls/hr Levetiracetam (Keppra Iv Premix*) 500 mg in 100 mls @ 400 mls/hr IV Q12H SARIKA Last Admin: 11/21/19 08:20 Dose: 400 mls/hr Propofol (Diprivan*) 100 mls @ 8.172 mls/hr IV .PER [facility]OL [facility]; Protocol Last Admin: 11/21/19 06:32 Dose: 32.8 mls/hr Fentanyl Citrate (Fentanyl Infusion Bag 50 Mcg/Ml 50 Ml) 2,500 mcg in 50 mls @ 0.25 mls/hr IV .PER [facility]OCOL [facility]; Protocol Last Admin: 11/20/19 22:15 Dose: 0.3 mls/hr Levocarnitine 6 gm/ Sodium (Chloride) 1,030 mls @ 2,000 mls/hr IV BID [facility] Stop: 11/22/19 09:01 Vital Signs 11/20/19 11/20/19 11/20/19 16:07 16:13 16:14 Temperature 98 F Pulse Rate 126 124 122 Respiratory 23 23 Rate Blood Pressure 160/74 160/74 (mmHg) O2 Sat by Pulse 98 100 100 Oximetry 0311/20/19 11/20/19 16:39 17:00 17:09 Temperature Pulse Rate 140 118 132 Respiratory 23 29 19 Rate Blood Pressure 164/105 183/116 (mmHg) O2 Sat by Pulse 95 100 98 Oximetry 11/20/19 11/20/19 11/20/19 17:19 17:27 17:29 Temperature Pulse Rate 127 112 112 Respiratory Rate Blood Pressure 120/86 136/87 135/66 (mmHg) O2 Sat by Pulse 99 99 99 Oximetry 11/20/19 11/20/19 11/20/19 17:31 17:34 17:35 Temperature Pulse Rate 125 107 Respiratory Rate Blood Pressure 116/94 134/105 138/72 (mmHg) O2 Sat by Pulse 99 96 Oximetry 11/20/19 11/20/19 11/20/19 17:39 17:40 17:41 Temperature Pulse Rate 94 95 Respiratory 22 Rate Blood Pressure 118/63 130/61 (mmHg) O2 Sat by Pulse 99 99 Oximetry 11/20/19 11/20/19 11/20/19 17:47 17:49 17:54 Temperature Pulse Rate 94 93 Respiratory 19 Rate Blood Pressure 110/58 123/57 (mmHg) O2 Sat by Pulse 99 97 Oximetry 11/20/19 11/20/19 11/20/19 17:59 18:01 18:04 Temperature Pulse Rate 89 90 91 Respiratory Rate Blood Pressure 137/62 122/58 (mmHg) O2 Sat by Pulse 100 100 100 Oximetry 11/20/19 11/20/19 11/20/19 19:00 19:04 19:08 Temperature Pulse Rate 87 128 123 Respiratory Rate Blood Pressure 169/102 174/99 (mmHg) O2 Sat by Pulse 100 100 100 Oximetry 11/20/19 11/20/19 11/20/19 19:09 19:14 19:19 Temperature Pulse Rate 118 139 138 Respiratory Rate Blood Pressure 177/87 167/97 167/104 (mmHg) O2 Sat by Pulse 100 100 100 Oximetry 11/20/19 11/20/19 11/20/19 19:29 19:34 19:39 Temperature Pulse Rate 138 121 106 Respiratory Rate Blood Pressure 185/104 171/99 162/94 (mmHg) O2 Sat by Pulse 100 100 100 Oximetry 11/20/19 11/20/19 11/20/19 19:45 19:49 19:53 Temperature 97.1 F Pulse Rate 100 98 Respiratory Rate Blood Pressure 157/88 148/79 (mmHg) O2 Sat by Pulse 100 100 Oximetry 11/20/19 11/20/19 11/20/19 19:59 20:01 20:05 Temperature 99.3 F 99.3 F 99.5 F Pulse Rate 97 91 114 Respiratory Rate Blood Pressure 135/81 138/94 (mmHg) O2 Sat by Pulse 100 100 100 Oximetry 11/20/19 11/20/19 11/20/19 20:09 20:14 20:20 Temperature 99.5 F 99.5 F 99.5 F Pulse Rate 91 88 104 Respiratory Rate Blood Pressure 131/80 127/71 132/86 (mmHg) O2 Sat by Pulse 100 100 99 Oximetry 11/20/19 11/20/19 11/20/19 20:24 20:29 20:35 Temperature 99.5 F 99.5 F 99.5 F Pulse Rate 87 86 86 Respiratory Rate Blood Pressure 130/74 135/75 124/76 (mmHg) O2 Sat by Pulse 100 100 100 Oximetry 11/20/19 11/20/19 11/20/19 20:39 20:44 20:50 Temperature 99.5 F 99.3 F 99.3 F Pulse Rate 87 82 85 Respiratory Rate Blood Pressure 118/70 130/78 131/69 (mmHg) O2 Sat by Pulse 100 100 100 Oximetry 11/20/19 11/20/19 11/20/19 20:55 21:00 21:01 Temperature 99.3 F 99.1 F 99.1 F Pulse Rate 86 86 86 Respiratory Rate Blood Pressure 114/68 123/65 (mmHg) O2 Sat by Pulse 100 100 100 Oximetry 11/20/19 11/20/19 11/20/19 21:05 21:10 21:16 Temperature 99.1 F 99.1 F 99.1 F Pulse Rate 86 86 105 Respiratory Rate Blood Pressure 120/65 120/65 144/90 (mmHg) O2 Sat by Pulse 100 100 86 Oximetry 11/20/19 11/20/19 11/20/19 21:20 21:22 21:25 Temperature 99.3 F 99.9 F 99.5 F Pulse Rate 101 84 89 Respiratory 14 Rate Blood Pressure 142/88 121/76 120/72 (mmHg) O2 Sat by Pulse 98 100 100 Oximetry 11/20/19 11/20/1920 21:30 21:35 21:40 Temperature 99.5 F 99.5 F 99.3 F Pulse Rate 86 89 88 Respiratory Rate Blood Pressure 118/66 120/59 124/62 (mmHg) O2 Sat by Pulse 100 100 100 Oximetry 11/20/19 11/20/19 11/20/19 21:45 21:50 21:55 Temperature 99.3 F 99.1 F 99.1 F Pulse Rate 87 89 88 Respiratory Rate Blood Pressure 125/60 118/53 117/57 (mmHg) O2 Sat by Pulse 100 100 100 Oximetry 11/20/19 11/20/19 11/20/19 22:13 22:15 22:45 Temperature 99.9 F 99.5 F Pulse Rate 85 100 85 Respiratory 17 Rate Blood Pressure 121/76 136/73 (mmHg) O2 Sat by Pulse 100 100 100 Oximetry 11/20/19 11/20/19 11/20/19 23:00 23:15 23:30 Temperature 99.3 F 99.1 F 98.8 F Pulse Rate 90 85 87 Respiratory 20 Rate Blood Pressure 116/56 129/74 118/59 (mmHg) O2 Sat by Pulse 99 100 99 Oximetry 11/20/19 11/20/19 11/21/19 23:45 23:59 00:00 Temperature 98.4 F 98.1 F 98.1 F Pulse Rate 87 85 85 Respiratory 18 Rate Blood Pressure 108/53 110/51 (mmHg) O2 Sat by Pulse 99 99 99 Oximetry 11/21/19 11/21/19 11/21/19 00:15 00:30 00:45 Temperature 97.7 F 97.3 F 97.3 F Pulse Rate 82 82 76 Respiratory Rate Blood Pressure 116/55 119/60 116/72 (mmHg) O2 Sat by Pulse 100 100 100 Oximetry 11/21/19 11/21/19 11/21/19 01:00 01:15 01:30 Temperature 97.3 F 97.0 F 97.0 F Pulse Rate 81 77 80 Respiratory 16 Rate Blood Pressure 118/70 120/67 120/66 (mmHg) O2 Sat by Pulse 99 100 100 Oximetry 11/21/19 11/21/19 11/21/19 01:45 02:00 02:15 Temperature 96.8 F 96.8 F 96.6 F Pulse Rate 78 79 79 Respiratory 16 Rate Blood Pressure 116/71 116/65 111/73 (mmHg) O2 Sat by Pulse 100 100 100 Oximetry 11/21/19 11/21/19 11/21/19 02:30 02:45 03:00 Temperature 96.6 F 96.6 F 96.6 F Pulse Rate 78 79 74 Respiratory 15 Rate Blood Pressure 108/71 113/70 112/72 (mmHg) O2 Sat by Pulse 100 100 100 Oximetry 11/21/19 11/21/19 11/21/19 03:15 03:30 03:45 Temperature 96.6 F 97.5 F Pulse Rate 66 75 75 Respiratory Rate Blood Pressure 132/79 135/92 110/71 (mmHg) O2 Sat by Pulse 100 99 Oximetry 11/21/19 11/21/19 11/21/19 04:00 04:15 04:30 Temperature 97.3 F 97.3 F 97.2 F Pulse Rate 81 83 78 Respiratory 16 Rate Blood Pressure 120/76 107/73 117/71 (mmHg) O2 Sat by Pulse 100 100 100 Oximetry 11/21/19 11/21/19 11/21/19 04:45 05:00 05:15 Temperature 97.2 F 97.2 F 97.2 F Pulse Rate 83 81 83 Respiratory 15 Rate Blood Pressure 117/72 114/69 110/62 (mmHg) O2 Sat by Pulse 99 99 99 Oximetry 11/21/19 11/21/19 11/21/19 05:30 05:45 06:00 Temperature 97.2 F 97.0 F 97.0 F Pulse Rate 81 73 75 Respiratory 14 Rate Blood Pressure 117/66 118/74 117/64 (mmHg) O2 Sat by Pulse 99 99 99 Oximetry 11/21/19 11/21/19 11/21/19 06:15 06:30 06:45 Temperature 97.2 F 97.2 F 97.2 F Pulse Rate 74 71 74 Respiratory Rate Blood Pressure 128/71 127/82 128/70 (mmHg) O2 Sat by Pulse 99 100 100 Oximetry 11/21/19 11/21/19 11/21/19 07:00 07:15 07:30 Temperature 97.2 F 97.2 F 97.2 F Pulse Rate 79 78 80 Respiratory 16 Rate Blood Pressure 123/72 113/64 113/69 (mmHg) O2 Sat by Pulse 99 99 99 Oximetry 11/21/19 07:45 Temperature 97.2 F Pulse Rate 82 Respiratory Rate Blood Pressure 119/72 (mmHg) O2 Sat by Pulse 99 Oximetry Intake and Output Last 24 Hours 11/19/19 11/20/19 11/21/19 11/22/19 06:59 06:59 06:59 06:59 Intake Total 1522 Output Total 2450 Balance -928 Weight 185 lb 10.067 oz Intake: IV Fluids 100 IVPB 899 NS (0.9%) 782 Valproic Acid 117 Medicated IV 523 CC - Propofol/Diprivan 523 Output: Zendejas 2450 Oxygen Devices in Use Now: Endotracheal Tube, Mechanical Ventilator Neurology Exam: General: Critically ill appearing young man. HEENT: Normocephelic/atraumatic, sclera anicteric, mucous membranes moist Neck: Supple Chest: Clear to auscultation bilaterally Cardiovascular: Regular rate and rhythm without murmurs, rubs, gallops Extremities: No clubbing, cyanosis, or edema Neurological Findings: Intubated. On sedation except held propofol for 5 minutes. PERRL, measuring 5 mm, constricting symmetrically to 3 mm bilaterally to light. Intact corneal and gag responses. Does not move to pain. Does not follow command. No ankle clonus (which was seen yesterday). Result Diagrams: 11/21/19 05:00 11/21/19 05:00 Assessment/Plan Mr. 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 1. Convulsive status epilepticus. He is no longer having clinical seizures. He seemed to be appropriately moving off sedation. - Etiology unclear. He could have had a breakthrough seizure. The fact that he 's requiring so much sedation makes me question the possibility of benzodiazepine withdrawal (has history of benzo withdrawal related seizures in the past). - Repeat EEG once the COVID-19 screen comes back negative. Clinically, he does not seem to be in nonconvulsive status epilepticus (eg, normal vitals, on heavy sedation). - Agree with levetirecetam therapy instead of Depakote now due to the hyperammonemia. - Increase the levetirecetam to 1,000 mg IV twice daily. - Seizure precautions - No need for LP or MRI as of yet unless the patient has recurrence of his seizures or develops signs of infection. WBC improved overnight, suggesting reactivity from his seizures. - Pending levetirecetam and total valproic acid levels (ordered this morning). Reordered the levetirecetam trough level for this evening. 2. Valproic acid induced hyperammonemia. This is most likely due to the load of Depakote he received yesterday. Discontinued Depakote. I started him on L- Carnitine IV for 2 doses. Consulted with pharmacy for dose confirmation (6 g IV x 1, then 1.3 g every 6 hours for a total of 3 doses). We can increase the frequency to every 4 hours for a total of two more doses, if needed. Repeat an ammonia level today (ordered for 1700 today). Defer lactulose treatment to the primary team. 3. Acute encephalopathy related to status epilepticus, sedation, and post-ictal state. Plan to wean him off sedation when deemed appropriate by the primary team. Since his EEG did not show any seizures yesterday, I don't recommend keeping him on sedation for the recommended 24-48 hours. I will continue to follow. I contacted and Mrs. Gomes and provided them with an update. Please contact me for any questions. Critical care time: 35 minutes.
[2019-11-21] MEDS ORDERED: levOCARNitine* 6 GM in NS 0.9% 1000 ML** 1,000 ML IV SCH (09:00)
[2019-11-21] MEDS ORDERED: levETIRAcetam 500 MG IVPREMIX* 500 MG/100 ML BAG IV SCH (09:00)
[2019-11-21] MEDS ORDERED: levOCARNitine* 6 GM in NS 0.9% 1000 ML** 1,000 ML IV ONE (09:30)
--- NOTE | 2019-11-21 10:56 | PN ---
Date of Service: 11/21/19 Critical Care Services: No events overnight Vital Signs: Temp Pulse Resp BP SpO2 FiO2 36.3 C 76 16 118/68 99 30 11/21/19 10:15 11/21/19 10:15 11/21/19 09:46 11/21/19 10:15 11/21/19 10:15 11/20 08:56 Physical Exam: Gen: appears non-toxic and rouses through sedation HEENT: NCAT, PERRL, intubated Lungs: clear Cardiac: S1S2 regular Abdomen: soft, NT, ND, +BS Extremities: no edema Neuro: rouses, follows commands x 4 Fluid Balance (Past 24 Hours): I= O= Net Intake & Output 11/19/19 11/20/19 11/21/19 11/22/19 06:59 06:59 06:59 06:59 Intake Total 1522 Output Total 2450 300 Balance -928 -300 Weight 84.2 kg Intake: IV Fluids 100 IVPB 899 NS (0.9%) 782 Valproic Acid 117 Medicated IV 523 CC - Propofol/Diprivan 523 Output: Zendejas 2450 300 Labs: Laboratory Results - last 24 hr 11/20/19 11/20/19 11/20/19 16:25 16:25 16:25 WBC 20.7 H RBC 5.11 Hgb 14.9 Hct 46 MCV 91 MCH 29 MCHC 32 RDW 14 Plt Count 291 MPV 10.7 H Neut % (Auto) 65.9 Lymph % (Auto) 29.1 [place] % (Auto) 4.3 Eos % (Auto) 0.3 Baso % (Auto) 0.4 Absolute Neuts (auto) 13.7 H Absolute Lymphs (auto) 6.0 H Absolute Monos (auto) 0.9 H Absolute Eos (auto) 0.1 Absolute Basos (auto) 0.1 Absolute Nucleated RBC 0.0 Nucleated RBC % 0.1 INR (Anticoag Therapy) 1.12 H ABG pH ABG pCO2 ABG pO2 ABG HCO3 ABG O2 Saturation ABG Base Excess Sodium 136 Potassium 4.3 Chloride 95 L Carbon Dioxide 12 L* Anion Gap 29 H BUN 19 Creatinine 1.34 H Est GFR ( Amer) 80.7 Est GFR (Non-Af Amer) 66.7 BUN/Creatinine Ratio 14.2 Glucose 191 H Lactic Acid Calcium 10.2 Phosphorus 10.5 H Magnesium 2.7 Total Bilirubin 0.70 AST 30 ALT 15 Alkaline Phosphatase 65 Ammonia Total Creatine Kinase 132 Total Protein 8.1 Albumin 5.2 Globulin 2.9 Albumin/Globulin Ratio 1.8 Urine Color Urine Appearance Urine pH Ur Specific [place] Urine Protein Urine Ketones Urine Blood Urine Nitrate Urine Bilirubin Urine Urobilinogen Ur Leukocyte Esterase Urine Glucose Urine Opiates Screen Ur Barbiturates Screen Valproic Acid 29.0 L Ur Phencyclidine Scrn Ur Amphetamines Screen U Benzodiazepines Scrn Urine Cocaine Screen U Cannabinoids Screen Serum Alcohol < 10 11/20/19 11/20/19 11/20/19 16:25 17:47 19:20 WBC RBC Hgb Hct MCV MCH MCHC RDW Plt Count MPV Neut % (Auto) Lymph % (Auto) [place] % (Auto) Eos % (Auto) Baso % (Auto) Absolute Neuts (auto) Absolute Lymphs (auto) Absolute Monos (auto) Absolute Eos (auto) Absolute Basos (auto) Absolute Nucleated RBC Nucleated RBC % INR (Anticoag Therapy) ABG pH 7.28 L ABG pCO2 36 ABG pO2 278 H ABG HCO3 17.9 L ABG O2 Saturation 100.0 H ABG Base Excess -9.0 L Sodium Potassium Chloride Carbon Dioxide Anion Gap BUN Creatinine Est GFR ( Amer) Est GFR (Non-Af Amer) BUN/Creatinine Ratio Glucose Lactic Acid 20.0 H* Calcium Phosphorus Magnesium Total Bilirubin AST ALT Alkaline Phosphatase Ammonia Total Creatine Kinase Total Protein Albumin Globulin Albumin/Globulin Ratio Urine Color Straw Urine Appearance Turbid Urine pH 5.0 Ur Specific [place] 1.019 Urine Protein Negative Urine Ketones 1+ A Urine Blood Negative Urine Nitrate Negative Urine Bilirubin Negative Urine Urobilinogen Negative Ur Leukocyte Esterase Negative Urine Glucose Negative Urine Opiates Screen Ur Barbiturates Screen Valproic Acid Ur Phencyclidine Scrn Ur Amphetamines Screen U Benzodiazepines Scrn Urine Cocaine Screen U Cannabinoids Screen Serum Alcohol 11/20/19 11/20/19 11/21/19 19:20 22:32 00:21 WBC RBC Hgb Hct MCV MCH MCHC RDW Plt Count MPV Neut % (Auto) Lymph % (Auto) [place] % (Auto) Eos % (Auto) Baso % (Auto) Absolute Neuts (auto) Absolute Lymphs (auto) Absolute Monos (auto) Absolute Eos (auto) Absolute Basos (auto) Absolute Nucleated RBC Nucleated RBC % INR (Anticoag Therapy) ABG pH 7.33 L ABG pCO2 34 L ABG pO2 178 H ABG HCO3 19.4 ABG O2 Saturation 100.0 H ABG Base Excess -7.1 L Sodium Potassium Chloride Carbon Dioxide Anion Gap BUN Creatinine Est GFR ( Amer) Est GFR (Non-Af Amer) BUN/Creatinine Ratio Glucose Lactic Acid 0.7 Calcium Phosphorus Magnesium Total Bilirubin AST ALT Alkaline Phosphatase Ammonia Total Creatine Kinase Total Protein Albumin Globulin Albumin/Globulin Ratio Urine Color Urine Appearance Urine pH Ur Specific [place] Urine Protein Urine Ketones Urine Blood Urine Nitrate Urine Bilirubin Urine Urobilinogen Ur Leukocyte Esterase Urine Glucose Urine Opiates Screen None detected Ur Barbiturates Screen None detected Valproic Acid Ur Phencyclidine Scrn None detected Ur Amphetamines Screen None detected U Benzodiazepines Scrn Presumptive positive A Urine Cocaine Screen None detected U Cannabinoids Screen Presumptive positive A Serum Alcohol 11/21/19 11/21/19 11/21/19 05:00 05:00 05:00 WBC 13.3 H RBC 4.65 Hgb 13.4 L Hct 41 L MCV 87 MCH 29 MCHC 33 RDW 14 Plt Count 198 MPV 10.1 Neut % (Auto) 72.5 Lymph % (Auto) 16.1 [place] % (Auto) 11.0 Eos % (Auto) 0.0 Baso % (Auto) 0.4 Absolute Neuts (auto) 9.6 H Absolute Lymphs (auto) 2.1 Absolute Monos (auto) 1.5 H Absolute Eos (auto) 0.0 Absolute Basos (auto) 0.1 Absolute Nucleated RBC 0.0 Nucleated RBC % 0.0 INR (Anticoag Therapy) ABG pH ABG pCO2 ABG pO2 ABG HCO3 ABG O2 Saturation ABG Base Excess Sodium 137 Potassium 4.3 Chloride 107 Carbon Dioxide 20 L Anion Gap 10 BUN 14 Creatinine 0.88 Est GFR ( Amer) 131.0 Est GFR (Non-Af Amer) 108.3 BUN/Creatinine Ratio 15.9 Glucose 75 Lactic Acid Calcium 8.6 Phosphorus 4.7 Magnesium 2.5 Total Bilirubin AST ALT Alkaline Phosphatase Ammonia 128 H Total Creatine Kinase Total Protein Albumin Globulin Albumin/Globulin Ratio Urine Color Urine Appearance Urine pH Ur Specific [place] Urine Protein Urine Ketones Urine Blood Urine Nitrate Urine Bilirubin Urine Urobilinogen Ur Leukocyte Esterase Urine Glucose Urine Opiates Screen Ur Barbiturates Screen Valproic Acid Cancelled Ur Phencyclidine Scrn Ur Amphetamines Screen U Benzodiazepines Scrn Urine Cocaine Screen U Cannabinoids Screen Serum Alcohol 11/21/19 05:00 WBC RBC Hgb Hct MCV MCH MCHC RDW Plt Count MPV Neut % (Auto) Lymph % (Auto) [place] % (Auto) Eos % (Auto) Baso % (Auto) Absolute Neuts (auto) Absolute Lymphs (auto) Absolute Monos (auto) Absolute Eos (auto) Absolute Basos (auto) Absolute Nucleated RBC Nucleated RBC % INR (Anticoag Therapy) ABG pH ABG pCO2 ABG pO2 ABG HCO3 ABG O2 Saturation ABG Base Excess Sodium Potassium Chloride Carbon Dioxide Anion Gap BUN Creatinine Est GFR ( Amer) Est GFR (Non-Af Amer) BUN/Creatinine Ratio Glucose Lactic Acid 0.8 Calcium Phosphorus Magnesium Total Bilirubin AST ALT Alkaline Phosphatase Ammonia Total Creatine Kinase Total Protein Albumin Globulin Albumin/Globulin Ratio Urine Color Urine Appearance Urine pH Ur Specific [place] Urine Protein Urine Ketones Urine Blood Urine Nitrate Urine Bilirubin Urine Urobilinogen Ur Leukocyte Esterase Urine Glucose Urine Opiates Screen Ur Barbiturates Screen Valproic Acid Ur Phencyclidine Scrn Ur Amphetamines Screen U Benzodiazepines Scrn Urine Cocaine Screen U Cannabinoids Screen Serum Alcohol Studies: CTA negative, CXR negative Nutrition: Will start TF Impression: Status Epilepticus in a patient with seizure history and benzo withdrawal history Plan: Status Epilepticus - in a patient with seizure history and benzo withdrawal history. Keppra loaded but then some concern for hyperammonemia being secondary to keppra and has been given L-carnitine to reverse. With that in mind and a status presentation I am not anxious to extubate, only more so in the presence of a COVID r/o. Will re-establish an AED plan, using diprivan at this time effectively and he wakes and appears non-focal with negative CTAH. WBC 20 on presentation, no ABx and now 13. 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 Benzo dependence - will continue to use diprivan, will need benzos on extubation to avoid clouding the situation further with withdrawal. Start TF, add GI/DVT prophylaxis. D/W Dr. Jackson Critical Care Time: 35 minutes
[2019-11-21] MEDS: levETIRAcetam 1000MG IVPREMIX* 1,000 MG/100 ML BAG IVPB SCH ×2 (11:26→22:30)
[2019-11-21] MEDS: Pantoprazole IV* 40 MG IV SCH (12:22)
[2019-11-21] MEDS: Heparin VIAL(*) 5000 UNITS/ML VIAL (FIVE THOUSAND) SUBCUT SCH ×2 (13:37→22:02)
[2019-11-21] MEDS: LEVOCARNITINE IV SCH ×2 (16:27→21:59)
[2019-11-21] MEDS: NS 0.9% IV SCH ×2 (16:27→21:59)
[2019-11-22] MEDS: NS 0.9% 1000 ML** 1,000 ML IV SCH (02:19)
[2019-11-22] MEDS: Propofol* 100 ML IV SCH ×3 (02:34→07:46)
[2019-11-22] MEDS: CHLORHEXADINE (PERIDEX) VENT ORAL CARE TOPICAL SCH ×3 (04:35→12:43)
[2019-11-22] MEDS: Midazolam IV for DRIP* 100 MG in NS 0.9% 100 ML* 80 ML IV SCH (04:54)
[2019-11-22] MEDS: Heparin VIAL(*) 5000 UNITS/ML VIAL (FIVE THOUSAND) SUBCUT SCH ×3 (05:22→21:03)
[2019-11-22 05:24] LABS: ABS Monocytes 0.7 10^3/ul (0-0.8); ABS Neutrophils 6.4 10^3/ul (1.5-7.7); Eosinophil % 0.4 %; Hematocrit 35 % (42-52); Hemoglobin 11.9 g/dL (14.0-18.0); Lymphocyte % 21.8 %; Mean Corpuscular HGB Conc 34 g/dL (31-36); Mean Corpuscular Hemoglobin 29 pg (27-31); Mean Corpuscular Volume 86 fL (80-94); Mean Platelet Volume 10.1 fL (7.4-10.4); Platelet Count 162 10^3/uL (150-450); Red Blood Count 4.08 10^6 /uL (4.18-5.48); Red Cell Distribution Width 14 % (10-15); White Blood Count 9.2 10^3/uL (3.5-10.8)
[2019-11-22 05:48] LABS: Albumin 3.3 g/dL (3.2-5.2); Calcium 8.1 mg/dL (8.6-10.3); Magnesium 1.8 mg/dL (1.9-2.7); Potassium 4.4 mmol/L (3.5-5.0); Total Bilirubin 0.3 mg/dL (0.2-1.0)
[2019-11-22 05:55] LABS: Albumin/Globulin Ratio 1.7 (1-3); BUN/Creatinine Ratio 11.8 (8-20); EGFR African American 155.2 (>60); EGFR Non-African American 128.3 (>60); Globulin 1.9 g/dL (2-4); Phosphorus 2.6 mg/dL (2.5-5.0); Total Protein 5.2 g/dL (6.4-8.9)
[2019-11-22] MEDS: fentaNYL INFUSION 50 MCG/ML* 2,500 MCG/50 ML BAG IV SCH (07:25)
[2019-11-22] MEDS: Pantoprazole IV* 40 MG IV SCH (07:46)
[2019-11-22] MEDS: levETIRAcetam 1000MG IVPREMIX* 1,000 MG/100 ML BAG IVPB SCH ×2 (09:19→21:05)
[2019-11-22] MEDS ORDERED: Dexmedetomidine* 1,000 MCG in NS 0.9% 250 ML* 240 ML IV SCH (12:00)
--- NOTE | 2019-11-22 12:42 | PN ---
Subjective Date of Service: 11/22/19 Length of Stay: 2 Days Neurology is following for status epilepticus. Interval History: The patient is extubated. He seems a bit restless. He informed me today that his neurologist had decreased the Depakote to 500 mg ER at night. He has been taking that for the past one year. He did have some sleep deprivation when he came home and was up till 3:30 AM Wednesday-Wednesday, and was up at around 930-10 AM. He denied any headaches or visual disturbance. He was able to speak with his parents for a few minutes. Review of Systems: Denied CP, SOB, or palpitations. Objective Active Medications: Chlorhexidine Gluconate (Peridex Mouth Wash 0.12%*) 15 ml TOPICAL Q4H SARIKA Last Admin: 11/22/19 07:46 Dose: 15 ml Heparin Sodium (Porcine) (Heparin Vial(*)) 5,000 units SUBCUT Q8HR SARIKA Last Admin: 11/22/19 05:22 Dose: 5,000 units Midazolam HCl 100 mg/ Sodium (Chloride) 100 mls @ 2.5 mls/hr IV .PER PROTOCOL SARIKA; Protocol Last Admin: 11/22/19 04:54 Dose: 4 mls/hr Sodium Chloride (Ns 0.9% 1000 Ml) 1,000 mls @ 125 mls/hr IV PER RATE [facility] Last Admin: 11/22/19 02:19 Dose: 125 mls/hr Propofol (Diprivan*) 100 mls @ 8.172 mls/hr IV .PER PROTOCOL SARIKA; Protocol Last Admin: 11/22/19 07:46 Dose: 35 mls/hr Fentanyl Citrate (Fentanyl Infusion Bag 50 Mcg/Ml 50 Ml) 2,500 mcg in 50 mls @ 0.25 mls/hr IV .PER PROTOCOL SARIKA; Protocol Last Admin: 11/22/19 07:25 Dose: 1 mls/hr Levetiracetam (Keppra Iv Premix*) 1,000 mg in 100 mls @ 400 mls/hr IVPB Q12H SARIKA Last Admin: 11/22/19 09:19 Dose: 400 mls/hr Dexmedetomidine HCl 1,000 mcg/ (Sodium Chloride) 250 mls @ 7.07 mls/hr IV .PER PROTOCOL SARIKA; Protocol Levocarnitine 1.3 gm/ Sodium (Chloride) 506.5 mls @ 1,000 mls/hr IV Q6HR [facility] Stop: 11/23/19 23:59 Pantoprazole Sodium (Protonix Iv*) 40 mg IV DAILY [facility] Last Admin: 11/22/19 07:46 Dose: 40 mg Vital Signs 11/22/19 11/22/19 11/22/19 10:30 10:45 11:00 Temperature 100.2 F 100.2 F 100.6 F Pulse Rate 79 96 97 Respiratory 18 Rate Blood Pressure 126/72 151/113 160/107 (mmHg) O2 Sat by Pulse 96 99 98 Oximetry 11/22/19 11/22/19 12:00 12:01 Temperature Pulse Rate Respiratory 23 14 Rate Blood Pressure (mmHg) O2 Sat by Pulse Oximetry Intake and Output Last 24 Hours 11/20/19 11/21/19 11/22/19 11/23/19 06:59 06:59 06:59 06:59 Intake Total 1522 6397 749 Output Total 2450 1455 500 Balance -928 4942 249 Weight 185 lb 10.067 oz 207 lb 14.334 oz Intake: IV Fluids 100 2942 617 Keppra 100 NS (0.9%) 2942 517 IVPB 899 1961 NS (0.9%) 782 1961 Valproic Acid 117 Medicated IV 523 727 132 CC - Propofol/Diprivan 523 727 132 IV Narcotic Infusion 82 Versed 82 Tube Feeding 555 Tube Feeding Flush Amount 130 Output: Urine 50 Zendejas 2450 1455 450 Oxygen Devices in Use Now: None Neurology Exam: General: Ill appearing young man who is trying to get out of bed to use the restroom. He was redirected and seems to understand the risk of falls. HEENT: Normocephelic/atraumatic, sclera anicteric, mucous membranes moist Neck: Supple Chest: Clear to auscultation bilaterally Cardiovascular: Regular rate and rhythm without murmurs, rubs, gallops Extremities: No clubbing, cyanosis, or edema Neurological Findings: Awake, alert, and oriented to person, place, and time. Speech: hoarseness. Cranial Nerve: PERRL, EOM intact, VFF, no nystagmus, mild facial droop on the right, facial sensation intact, hearing intact to finger rub bilaterally, palate elevates symmetrically, tongue midline, SCM and Trapezius s/s. Motor: s/s throughout, proximal and distal extremities x4 tone/bulk normal. Mild asterixis bilaterally. Sensation: intact to LT/PP bilaterally upper and lower extremities Deep Tendon Reflex: 2+ symmetric in the upper/lower extremities, Babinski - down going Finger to nose, rapid alternating movements intact without tremor, no dysdiadochokinesia Gait: deferred Result Diagrams: 11/22/19 05:10 11/22/19 05:10 Microbiology and Other Data: Microbiology 11/20/19 20:20 Aerobic Blood Culture - Preliminary Blood Venous No Growth Day 1 Anaerobic Blood Culture - Preliminary No Growth Day 1 11/20/19 20:20 Aerobic Blood Culture - Preliminary Blood Venous No Growth Day 1 Anaerobic Blood Culture - Preliminary No Growth Day 1 Assessment/Plan Mr. 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 The patient was extubated 11/22/2019. 1. Convulsive status epilepticus. Resolved. - Etiology: most likely under-dosing of seizure medication. He could have had a breakthrough seizure. - No need to repeat an EEG at this time since he is awake and no longer having seizures. - Obtain an EEG only if he has breakthrough seizures. - Agree with levetirecetam therapy instead of Depakote now due to the hyperammonemia. - Continue levetirecetam therapy 1,000 mg IV twice daily. Switch to PO once he is more awake and cooperative. We will slowly transition him to Depakote. - Seizure precautions - No need for LP or MRI as of yet unless the patient has recurrence of his seizures or develops signs of infection. - Pending levetirecetam level. He should be transitioned to Depakote slowly once the ammonia is low and his mentation improves. This can be done as an outpatient. 2. Valproic acid induced hyperammonemia. This is most likely due to the load of Depakote and due to seizures. Defer lactulose treatment to the primary team. Restarted L-Carnitine for another 24 hour. 3. Acute encephalopathy related to status epilepticus, sedation, and post-ictal state. Slowly improving. The asterixis on examination suggests symptomatic hyperammonemia. Defer lactulose therapy to the primary team. 4. Post-extubation: BLOWING WEASAND evaluation and advance diet as tolerated. I will continue to follow. I contacted and Mrs. Gomes and provided them with an update today 11/22/2019 at 12:40 PM. Time spent: 35 minutes.
[2019-11-22] MEDS ORDERED: NS 0.9% IV SCH (13:00)
[2019-11-22] MEDS ORDERED: LEVOCARNITINE IV SCH (13:00)
--- NOTE | 2019-11-22 14:12 | PN ---
Date of Service: 11/22/19 Critical Care Services: Stable overnight Vital Signs: Temp Pulse Resp BP SpO2 FiO2 38.1 C 97 14 160/107 98 21 11/22/19 11:00 11/22/19 11:00 11/22/19 12:01 11/22/19 11:00 11/22/19 11:00 11/21 08:22 Physical Exam: Gen: HEENT: Lungs: Cardiac: Abdomen: Extremities: Neuro: Fluid Balance (Past 24 Hours): I= O= Net Intake & Output 11/20/19 11/21/19 11/22/19 11/23/19 06:59 06:59 06:59 06:59 Intake Total 1522 6397 749 Output Total 2450 1455 500 Balance -928 4942 249 Weight 84.2 kg 94.3 kg Intake: IV Fluids 100 2942 617 Keppra 100 NS (0.9%) 2942 517 IVPB 899 1961 NS (0.9%) 782 1961 Valproic Acid 117 Medicated IV 523 727 132 CC - Propofol/Diprivan 523 727 132 IV Narcotic Infusion 82 Versed 82 Tube Feeding 555 Tube Feeding Flush Amount 130 Output: Urine 50 Zendejas 2450 1455 450 Labs: Laboratory Results - last 24 hr 11/21/19 11/22/19 11/22/19 16:45 05:10 05:10 WBC RBC Hgb Hct MCV MCH MCHC RDW Plt Count MPV Neut % (Auto) Lymph % (Auto) [place] % (Auto) Eos % (Auto) Baso % (Auto) Absolute Neuts (auto) Absolute Lymphs (auto) Absolute Monos (auto) Absolute Eos (auto) Absolute Basos (auto) Absolute Nucleated RBC Nucleated RBC % Sodium 142 Potassium 4.4 Chloride 113 H Carbon Dioxide 24 Anion Gap 5 BUN 9 Creatinine 0.76 Est GFR ( Amer) 155.2 Est GFR (Non-Af Amer) 128.3 BUN/Creatinine Ratio 11.8 Glucose 88 Calcium 8.1 L Phosphorus 2.6 Magnesium 1.8 L Total Bilirubin 0.30 AST 19 ALT 11 Alkaline Phosphatase 36 Ammonia 53 81 H Total Protein 5.2 L Albumin 3.3 Globulin 1.9 L Albumin/Globulin Ratio 1.7 11/22/19 05:10 WBC 9.2 RBC 4.08 L Hgb 11.9 L Hct 35 L MCV 86 MCH 29 MCHC 34 RDW 14 Plt Count 162 MPV 10.1 Neut % (Auto) 69.8 Lymph % (Auto) 21.8 [place] % (Auto) 7.6 Eos % (Auto) 0.4 Baso % (Auto) 0.4 Absolute Neuts (auto) 6.4 Absolute Lymphs (auto) 2.0 Absolute Monos (auto) 0.7 Absolute Eos (auto) 0.0 Absolute Basos (auto) 0.0 Absolute Nucleated RBC 0.0 Nucleated RBC % 0.0 Sodium Potassium Chloride Carbon Dioxide Anion Gap BUN Creatinine Est GFR ( Amer) Est GFR (Non-Af Amer) BUN/Creatinine Ratio Glucose Calcium Phosphorus Magnesium Total Bilirubin AST ALT Alkaline Phosphatase Ammonia Total Protein Albumin Globulin Albumin/Globulin Ratio Plan: Status Epilepticus - in a patient with seizure history and benzo withdrawal history. Keppra loaded but then some concern for hyperammonemia being secondary to valproic acid (not keppra as I wrote yesterday) and has been given L- carnitine to reverse. With that in mind and a status presentation I was not anxious to extubate, only more so in the presence of a COVID r/o but now another 24H later its hard to keep the tube if he can come off. He did well with the wake up this AM and did well with the SBT so he is now extubated and continues to do well apart from some impulsivity we are controlling with precedex. Other than some mild hyperpyrexia directly associated with DC benzos and diprivan he is afebrile with a nl WBC on no Abx and clearly improved. AEDs per Dr. Jackson, currently doing well with Keppra. Hyperammonemia - likely from the status episode itself and washing overall. Let' s see whwre he takes us. No evidence of hepatocellular injury. Benzo dependence - on precedex now but will likely transition to some other ASHIA agent Start PO, continue GI/DVT prophylaxis. D/W Dr. Jackson Critical Care Time: 40 minutes
[2019-11-22] MEDS ORDERED: LORazepam INJ* 2 MG/ML 1 ML VIAL ONE (14:20)
[2019-11-22] MEDS ORDERED: Lorazepam PYXIS KEY ONE (14:20)
[2019-11-22] MEDS ORDERED: Lorazepam PYXIS KEY PRN ×2 (14:22→14:23)
[2019-11-22] MEDS ORDERED: LORazepam INJ* 2 MG/ML 1 ML VIAL IV PUSH ONE (14:22)
[2019-11-22] MEDS ORDERED: LORazepam INJ* 2 MG/ML 1 ML VIAL IV PUSH PRN (14:23)
[2019-11-22] MEDS: LEVOCARNITINE IV SCH ×2 (14:30→18:06)
[2019-11-22] MEDS: NS 0.9% IV SCH ×2 (14:30→18:06)
[2019-11-22] MEDS ORDERED: LORazepam INJ* 2 MG/ML 1 ML VIAL IM ONE (18:00)
[2019-11-23] MEDS: NS 0.9% IV SCH ×4 (00:07→20:03)
[2019-11-23] MEDS: LEVOCARNITINE IV SCH ×4 (00:07→20:03)
[2019-11-23] MEDS: Heparin VIAL(*) 5000 UNITS/ML VIAL (FIVE THOUSAND) SUBCUT SCH ×3 (06:04→22:18)
[2019-11-23 06:20] LABS: Hematocrit 34 % (42-52); Hemoglobin 11.8 g/dL (14.0-18.0); Mean Corpuscular HGB Conc 35 g/dL (31-36); Mean Corpuscular Hemoglobin 29 pg (27-31); Mean Corpuscular Volume 84 fL (80-94); Mean Platelet Volume 9.9 fL (7.4-10.4); Platelet Count 154 10^3/uL (150-450); Red Blood Count 4.07 10^6 /uL (4.18-5.48); Red Cell Distribution Width 13 % (10-15); White Blood Count 10.8 10^3/uL (3.5-10.8)
[2019-11-23 06:38] LABS: Albumin 3.8 g/dL (3.2-5.2); Calcium 8.6 mg/dL (8.6-10.3); Magnesium 1.4 mg/dL (1.9-2.7); Potassium 3.9 mmol/L (3.5-5.0)
[2019-11-23 06:44] LABS: Albumin/Globulin Ratio 1.8 (1-3); BUN/Creatinine Ratio 4.9 (8-20); EGFR Non-African American 165.3 (>60); Globulin 2.1 g/dL (2-4); Phosphorus 3.6 mg/dL (2.5-5.0); Total Protein 5.9 g/dL (6.4-8.9)
[2019-11-23] MEDS: levETIRAcetam 1000MG IVPREMIX* 1,000 MG/100 ML BAG IVPB SCH (09:27)
[2019-11-23] MEDS: Pantoprazole IV* 40 MG IV SCH (09:27)
[2019-11-23] MEDS ORDERED: Calcium Gluconate INJ* 2 GM in NS 0.9% 100 ML* 100 ML IV ONE (10:04)
[2019-11-23] MEDS ORDERED: Magnesium Sulfate 2 GM IV* 2 GM/50 ML BAG IVPB ONE (10:05)
--- NOTE | 2019-11-23 11:03 | PN ---
Date of Service: 11/23/19 Critical Care Services: Delirium improving. Precedex off. Vital Signs: Temp Pulse Resp BP SpO2 FiO2 36.2 C 61 21 134/98 99 21 11/23/19 08:00 11/23/19 09:00 11/23/19 09:00 11/23/19 09:00 11/23/19 09:00 11/21 08:22 Physical Exam: Gen: NAD, sitting up using his computer HEENT: NCAT, PERRL Lungs: clear Cardiac: S1S2 regular Abdomen: benign Extremities: no edema Neuro: grossly intact Fluid Balance (Past 24 Hours): I= O= Net Intake & Output 11/21/19 11/22/19 11/23/19 11/24/19 06:59 06:59 06:59 06:59 Intake Total 1522 6397 5456 Output Total 2450 1455 2850 Balance -928 4942 2606 Weight 84.2 kg 94.3 kg 92.9 kg Intake: IV Fluids 100 2942 1179 Keppra 100 NS (0.9%) 2942 1017 Precedex 62 IVPB 899 1961 1225 Keppra 205 NS (0.9%) 782 1961 1020 Valproic Acid 117 Medicated IV 523 727 272 CC - Propofol/Diprivan 523 727 272 IV Narcotic Infusion 82 Versed 82 Oral 2780 Tube Feeding 555 Tube Feeding Flush Amount 130 Output: Urine 2400 Zendejas 2450 1455 450 Other: Estimated Void Large # Voids 1 Labs: Laboratory Results - last 24 hr 11/21/19 11/23/19 11/23/19 10:16 06:15 06:15 WBC 10.8 RBC 4.07 L Hgb 11.8 L Hct 34 L MCV 84 MCH 29 MCHC 35 RDW 13 Plt Count 154 MPV 9.9 Sodium 140 Potassium 3.9 Chloride 108 Carbon Dioxide 21 L Anion Gap 11 BUN 3 L Creatinine 0.61 L Est GFR ( Amer) 200.0 Est GFR (Non-Af Amer) 165.3 BUN/Creatinine Ratio 4.9 L Glucose 79 Calcium 8.6 Ionized Calcium Phosphorus 3.6 Magnesium 1.4 L Total Bilirubin 1.00 AST 45 H ALT 17 Alkaline Phosphatase 38 Ammonia Total Protein 5.9 L Albumin 3.8 Globulin 2.1 Albumin/Globulin Ratio 1.8 Levetiracetam 16.8 11/23/19 11/23/19 06:15 06:15 WBC RBC Hgb Hct MCV MCH MCHC RDW Plt Count MPV Sodium Potassium Chloride Carbon Dioxide Anion Gap BUN Creatinine Est GFR ( Amer) Est GFR (Non-Af Amer) BUN/Creatinine Ratio Glucose Calcium Ionized Calcium 1.11 L Phosphorus Magnesium Total Bilirubin AST ALT Alkaline Phosphatase Ammonia 48 Total Protein Albumin Globulin Albumin/Globulin Ratio Levetiracetam Nutrition: Starting PO Impression: Status Epilepticus resolved Plan: Status Epilepticus - resolved. Tolerated extubation well. Delirium improved. No further clinical seizure activity. AEDs per Dr. Jackson. Hyperammonemia - resolved. L-carnitine for Valproate potential to have been the source but relation is not clear. I suspect seizure itself the source. 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 Afebrile apart from a few hours around extubation/acute withdrawal of multiple compounds. On RA. OK to floor as his delirium further clears and AEDs adjusted.
[2019-11-23] MEDS ORDERED: Magnesium Sulfate 4 GM IV IVPB ONE (11:30)
[2019-11-23] MEDS: MAGNESIUM SULFATE 4 GM IV ONE ×2 (11:35→11:52)
--- NOTE | 2019-11-23 13:27 | PN ---
Subjective Date of Service: 11/23/19 Length of Stay: 3 Days Neurology is following for seizures. Interval History: The patient was evaluated outside the door with the bedside nurse interviewing the patient for the examiner. I was asking questions through the door to preserve PPE, and since the patient appears to be doing extremely well. New is laughing and joking with the examiner. He reported only taking Depakote 500 mg at night since 10/31/2019, as instructed by his neurologist in [place]. New is concerned about his driving restrictions. Review of Systems: Denied CP, SOB, or palpitations. Objective Active Medications: Heparin Sodium (Porcine) (Heparin Vial(*)) 5,000 units SUBCUT Q8HR [facility] Last Admin: 11/23/19 06:04 Dose: 5,000 units Levetiracetam (Keppra Iv Premix*) 1,000 mg in 100 mls @ 400 mls/hr IVPB Q12H [facility] Last Admin: 11/23/19 09:27 Dose: 400 mls/hr Levocarnitine 1.3 gm/ Sodium (Chloride) 506.5 mls @ 1,000 mls/hr IV Q6H [facility] Stop: 11/23/19 23:59 Last Admin: 11/23/19 06:13 Dose: 1,000 mls/hr Magnesium Sulfate (Magnesium Sulf 4 Gm/100 Ml Iv*) 4,000 mg in 100 mls @ 33.333 mls/hr IVPB ONCE ONE Stop: 11/23/19 14:29 Last Admin: 11/23/19 10:45 Dose: 33.333 mls/hr Lorazepam (Ativan Inj*) 2 mg IV PUSH Q2H PRN PRN Reason: ANXIETY Last Admin: 11/22/19 19:27 Dose: 2 mg Miscellaneous (Ativan Pyxis Win) 1 ea N/A .ATIVAN IV WIN PRN PRN Reason: PYXIS WIN Pantoprazole Sodium (Protonix Iv*) 40 mg IV DAILY [facility] Last Admin: 11/23/19 09:27 Dose: 40 mg Vital Signs 11/22/19 11/22/19 11/22/19 14:00 14:29 15:00 Temperature Pulse Rate Respiratory 18 22 12 Rate Blood Pressure (mmHg) O2 Sat by Pulse Oximetry 11/22/19 11/22/19 11/22/19 15:30 15:31 16:00 Temperature Pulse Rate 75 Respiratory 27 22 22 Rate Blood Pressure 165/101 (mmHg) O2 Sat by Pulse 95 Oximetry 11/22/19 11/22/19 11/22/19 16:02 16:15 16:30 Temperature Pulse Rate 53 54 76 Respiratory 27 25 23 Rate Blood Pressure 124/65 104/58 123/73 (mmHg) O2 Sat by Pulse 96 95 98 Oximetry 11/22/19 11/22/19 11/22/19 17:00 17:01 17:31 Temperature Pulse Rate 51 51 51 Respiratory 28 28 21 Rate Blood Pressure 143/80 138/81 (mmHg) O2 Sat by Pulse 96 96 97 Oximetry 11/22/19 11/22/19 11/22/19 18:00 18:01 19:00 Temperature Pulse Rate 57 55 80 Respiratory 23 21 20 Rate Blood Pressure 135/66 (mmHg) O2 Sat by Pulse 96 96 96 Oximetry 11/22/19 11/22/19 11/22/19 19:02 19:27 19:55 Temperature Pulse Rate 56 Respiratory 12 18 18 Rate Blood Pressure 156/95 (mmHg) O2 Sat by Pulse 98 Oximetry 11/22/19 11/22/19 11/22/19 20:00 20:01 21:00 Temperature Pulse Rate Respiratory 16 26 21 Rate Blood Pressure 166/101 (mmHg) O2 Sat by Pulse Oximetry 11/22/19 11/22/19 11/22/19 21:01 21:22 22:00 Temperature Pulse Rate 77 77 Respiratory 19 21 16 Rate Blood Pressure 178/94 141/76 144/102 (mmHg) O2 Sat by Pulse 98 100 Oximetry 11/22/19 11/22/19 11/22/19 23:00 23:21 23:23 Temperature Pulse Rate 88 67 72 Respiratory 17 23 20 Rate Blood Pressure 133/92 (mmHg) O2 Sat by Pulse 96 99 98 Oximetry 11/22/19 11/23/19 11/23/19 23:41 00:00 00:01 Temperature Pulse Rate 83 73 Respiratory 25 25 24 Rate Blood Pressure 136/76 (mmHg) O2 Sat by Pulse 92 98 Oximetry 11/23/19 11/23/19 11/23/19 00:50 01:00 01:01 Temperature Pulse Rate 67 77 Respiratory 24 21 27 Rate Blood Pressure 127/72 (mmHg) O2 Sat by Pulse 98 100 Oximetry 11/23/19 11/23/19 11/23/19 01:54 02:00 02:01 Temperature Pulse Rate Respiratory 18 10 16 Rate Blood Pressure 120/82 (mmHg) O2 Sat by Pulse Oximetry 11/23/19 11/23/19 11/23/19 03:00 03:01 03:11 Temperature 99.6 F Pulse Rate 74 73 Respiratory 8 15 Rate Blood Pressure 142/96 (mmHg) O2 Sat by Pulse 97 99 Oximetry 11/23/19 11/23/19 11/23/19 03:54 04:00 05:00 Temperature Pulse Rate 80 79 Respiratory 14 14 24 Rate Blood Pressure 147/92 158/103 (mmHg) O2 Sat by Pulse 97 100 Oximetry 11/23/19 11/23/19 11/23/19 05:32 06:00 06:59 Temperature Pulse Rate 71 Respiratory 25 29 21 Rate Blood Pressure 143/88 (mmHg) O2 Sat by Pulse 95 Oximetry 11/23/19 11/23/19 11/23/19 07:00 08:00 09:00 Temperature 97.2 F Pulse Rate 73 68 61 Respiratory 29 22 21 Rate Blood Pressure 152/97 115/88 134/98 (mmHg) O2 Sat by Pulse 100 98 99 Oximetry 11/23/19 11/23/19 11/23/19 10:00 10:01 11:00 Temperature Pulse Rate 101 73 Respiratory 29 19 8 Rate Blood Pressure (mmHg) O2 Sat by Pulse 100 100 Oximetry 11/23/19 11:01 Temperature Pulse Rate Respiratory 18 Rate Blood Pressure 141/82 (mmHg) O2 Sat by Pulse Oximetry Intake and Output Last 24 Hours 11/21/19 11/22/19 11/23/19 11/24/19 06:59 06:59 06:59 06:59 Intake Total 1522 6397 5456 Output Total 2450 1455 2850 1000 Balance -928 4942 2606 -1000 Weight 185 lb 10.067 oz 207 lb 14.334 oz 204 lb 12.951 oz Intake: IV Fluids 100 2942 1179 Keppra 100 NS (0.9%) 2942 1017 Precedex 62 IVPB 899 1961 1225 Keppra 205 NS (0.9%) 782 1961 1020 Valproic Acid 117 Medicated IV 523 727 272 CC - Propofol/Diprivan 523 727 272 IV Narcotic Infusion 82 Versed 82 Oral 2780 Tube Feeding 555 Tube Feeding Flush Amount 130 Output: Urine 2400 Zendejas 2450 2549 581 3964 Other: Estimated Void Large # Voids 1 Oxygen Devices in Use Now: None Neurology Exam: General: Well nourished, well developed, and in no acute distress HEENT: Normocephelic/atraumatic, sclera anicteric, mucous membranes moist Neck: Supple Chest: Clear to auscultation bilaterally Cardiovascular: Regular rate and rhythm without murmurs, rubs, gallops Abdomen: Soft, non-tender/non-distended Extremities: No clubbing, cyanosis, or edema Neurological Findings: Awake, alert, and oriented to person, place, and time. Mild psychmotor slowing. Speech: fluent without dysarthria, repetition intact Cranial Nerve: PERRL, EOM intact, VFF, no nystagmus, face symmetric bilaterally , facial sensation intact, hearing intact to finger rub bilaterally, palate elevates symmetrically, tongue midline, SCM and Trapezius s/s. Motor: s/s throughout, proximal and distal extremities x4 tone/bulk normal Sensation: intact to LT/PP bilaterally upper and lower extremities Finger to nose, rapid alternating movements intact without tremor, no dysdiadochokinesia Gait: deferred Result Diagrams: 11/23/19 06:15 11/23/19 06:15 Additional Lab and Data: Levetirecetam: 26 Microbiology and Other Data: Microbiology 11/20/19 20:20 Aerobic Blood Culture - Preliminary Blood Venous No Growth Day 1 Anaerobic Blood Culture - Preliminary No Growth Day 1 11/20/19 20:20 Aerobic Blood Culture - Preliminary Blood Venous No Growth Day 1 Anaerobic Blood Culture - Preliminary No Growth Day 1 Assessment/Plan Mr. 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 The patient was extubated 11/22/2019. 1. Convulsive status epilepticus. Resolved. - Etiology: most likely under-dosing of seizure medication. He was instructed to reduce the Depakote recently to 500 mg at night on 10/31/2019. The patient' s goal was to get off Depakote completely. I informed him and his parents that he will need to be on anti-seizure medications indefinitely given the recent status epilepticus. - No need to repeat an EEG at this time since he is awake and no longer having seizures. - Obtain an EEG only if he has breakthrough seizures. - Agree with levetirecetam therapy instead of Depakote now due to the hyperammonemia. - Continue levetirecetam therapy 1,000 mg IV twice daily. Switch to PO once he is more awake and cooperative. We will slowly transition him to Depakote as an outpatient. - Seizure precautions - No need for LP or MRI as of yet unless the patient has recurrence of his seizures or develops signs of infection. - Levetirecetam level is within therapic range. 2. Hyperammonemia. Resolved. This is most likely due to the load of Depakote and due to seizures. He has responded well to L Carnitine. We can discontinue L carnitine now since the ammonia level is within normal range. 3. Acute encephalopathy related to status epilepticus, sedation, and post-ictal state. resolved. 4. Pending COVID-19 testing. I will continue to follow. I contacted and Mrs. Gomes and provided them with an update today 11/23/2019 at 09:00. New was able to facetime with his family through my phone. He can be transferred to the floor when deemed ready by the ICU team. Time spent: 35 minutes.
[2019-11-23] MEDS: levETIRAcetam TAB* 500 MG PO SCH (22:17)
[2019-11-24] MEDS: Heparin VIAL(*) 5000 UNITS/ML VIAL (FIVE THOUSAND) SUBCUT SCH (06:18)
[2019-11-24 07:03] LABS: Albumin 3.8 g/dL (3.2-5.2); Albumin/Globulin Ratio 1.5 (1-3); BUN/Creatinine Ratio 8.7 (8-20); Calcium 9.1 mg/dL (8.6-10.3); EGFR African American 173.5 (>60); EGFR Non-African American 143.4 (>60); Globulin 2.6 g/dL (2-4); Magnesium 1.7 mg/dL (1.9-2.7); Potassium 4.1 mmol/L (3.5-5.0); Total Bilirubin 0.6 mg/dL (0.2-1.0); Total Protein 6.4 g/dL (6.4-8.9)
[2019-11-24 08:52] VITALS: BP 149/79
[2019-11-24] MEDS: levETIRAcetam TAB* 500 MG PO SCH (09:30)
[2019-11-24] MEDS: Pantoprazole IV* 40 MG IV SCH (09:31)
[2019-11-24] MEDS ORDERED: Magnesium Oxide TAB* 400 MG PO SCH (10:00)
--- NOTE | 2019-11-24 14:23 | PN ---
Subjective Date of Service: 11/24/19 Length of Stay: 4 Days Neurology is following for seizures. Interval History: No seizures overnight. He is tolerating levetirecetam without any reported side effects. He denied feeling anxious or agitated. He reports having tremors for years. The tremors were worse with Depakote use. He also informed me that the seizures started during his second year of college when he was unfortunately doing drugs. He was on stimulants and has done cocaine in the past. He no longer does any drugs except occasional marijuana. He has turned his life around this past year. The patient does not remember most of the hospitalization. He didn't walk much. He denied any focal weakness or paresthesia. Review of Systems: Denied CP, SOB, or palpitations. Objective Active Medications: Heparin Sodium (Porcine) (Heparin Vial(*)) 5,000 units SUBCUT Q8HR [facility] Last Admin: 11/24/19 06:18 Dose: 5,000 units Levetiracetam (Keppra Tab*) 1,000 mg PO BID [facility] Last Admin: 11/24/19 09:30 Dose: 1,000 mg Lorazepam (Ativan Inj*) 2 mg IV PUSH Q2H PRN PRN Reason: ANXIETY Last Admin: 11/22/19 19:27 Dose: 2 mg Magnesium Oxide (Magox 400 Tab*) 400 mg PO DAILY [facility] Last Admin: 11/24/19 09:29 Dose: 400 mg Miscellaneous (Ativan Pyxis Saha) 1 ea N/A .ATIVAN IV SAHA PRN PRN Reason: PYXIS SAHA Pantoprazole Sodium (Protonix Iv*) 40 mg IV DAILY [facility] Last Admin: 11/24/19 09:31 Dose: 40 mg Vital Signs 11/23/19 11/23/19 11/23/19 20:00 21:20 23:20 Temperature 98.2 F 98.5 F Pulse Rate 59 53 Respiratory 16 19 19 Rate Blood Pressure 166/94 133/74 (mmHg) O2 Sat by Pulse 98 100 Oximetry 11/24/19 11/24/19 03:51 08:20 Temperature 97.6 F 98.3 F Pulse Rate 64 64 Respiratory 18 23 Rate Blood Pressure 140/71 149/79 (mmHg) O2 Sat by Pulse 100 100 Oximetry Intake and Output Last 24 Hours 11/22/19 11/23/19 11/24/19 11/25/19 06:59 06:59 06:59 06:59 Intake Total 6397 5456 1246 Output Total 1455 2850 1000 Balance 4942 2606 246 Weight 207 lb 14.334 oz 204 lb 12.951 oz Intake: IV Fluids 2942 1179 560 Keppra 100 NS (0.9%) 2942 1017 40 Precedex 62 levocarnitine 520 IVPB 1960 1225 506 Keppra 205 NS (0.9%) 1960 1020 506 Medicated IV 727 272 CC - Propofol/Diprivan 727 272 IV Narcotic Infusion 82 Versed 82 Oral 2780 180 Tube Feeding 555 Tube Feeding Flush Amount 130 Output: Urine 2400 Zendejas 1255 402 2046 Other: Estimated Void Large Medium # Bowel Movements 1 Estimated Stool Amount Medium # Voids 1 2 Oxygen Devices in Use Now: None Neurology Exam: General: Well nourished, well developed, and in no acute distress HEENT: Normocephelic/atraumatic, sclera anicteric, mucous membranes moist Neck: Supple Chest: Clear to auscultation bilaterally Cardiovascular: Regular rate and rhythm without murmurs, rubs, gallops Extremities: No clubbing, cyanosis, or edema Neurological Findings: Awake, alert, and oriented to person, place, and time. Speech: fluent without dysarthria, repetition intact Cranial Nerve: PERRL, EOM intact, VFF, no nystagmus, face symmetric bilaterally , facial sensation intact, hearing intact to finger rub bilaterally, palate elevates symmetrically, tongue midline, SCM and Trapezius s/s. Motor: s/s throughout, proximal and distal extremities x4 tone/bulk normal Sensation: intact to LT/PP bilaterally upper and lower extremities Deep Tendon Reflex: 2+ symmetric in the upper/lower extremities, Babinski - down going Finger to nose, rapid alternating movements intact without tremor, no dysdiadochokinesia Gait: intact with good arm swing and stride. Minimal swaying but no ataxia. Result Diagrams: 11/23/19 06:15 11/24/19 06:15 Additional Lab and Data: Levetirecetam: 26 COVID-19: undetected Microbiology and Other Data: Microbiology 11/20/19 20:20 Aerobic Blood Culture - Preliminary Blood Venous No Growth Day 1 Anaerobic Blood Culture - Preliminary No Growth Day 1 11/20/19 20:20 Aerobic Blood Culture - Preliminary Blood Venous No Growth Day 1 Anaerobic Blood Culture - Preliminary No Growth Day 1 Assessment/Plan Mr. 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 The patient was extubated 11/22/2019. CT head is negative for hemorrhage. CTA head and neck is negative for LVO. 1. Convulsive status epilepticus. Resolved. - Etiology: most likely under-dosing of seizure medication. He was instructed to reduce the Depakote recently to 500 mg at night on 10/31/2019. The patient' s goal was to get off Depakote completely. I informed him and his parents that he will need to be on anti-seizure medications indefinitely given the recent status epilepticus. - No need to repeat an EEG at this time since he is awake and no longer having seizures. - Agree with levetirecetam therapy instead of Depakote now due to the hyperammonemia and tremors. - Continue levetirecetam therapy 1,000 mg IV twice daily. Switch to PO once he is more awake and cooperative. We will slowly transition him to Depakote as an outpatient. - Seizure precautions - No need for LP or MRI as of yet unless the patient has recurrence of his seizures or develops signs of infection. - Levetirecetam level is within therapeutic range He will be provided with a few days worth of levetiracetam. I spoke to Katy Leung who has agreed to send the prescription to the patient's preferred pharmacy. 2. Hyperammonemia. Resolved. This is most likely due to the load of Depakote and due to seizures. He has responded well to L Carnitine. We can discontinue L carnitine now since the ammonia level is within normal range. 3. Acute encephalopathy related to status epilepticus, sedation, and post-ictal state. resolved. 4. COVID negative. I will arrange for a follow-up appointment with neurology.
--- NOTE | 2019-11-24 20:51 | DS ---
CC: Dr. Dodd * DISCHARGE SUMMARY: DATE OF ADMISSION: 11/20/19 DATE OF DISCHARGE: 11/24/19 PROVIDER: MELLY Maravilla PRIMARY CARE PROVIDER: Dr. Dodd. ATTENDING PHYSICIAN WHILE IN THE HOSPITAL: Dr. Mojgan Munguia * (dictated by MELLY Maravilla). CONSULTING NEUROLOGIST: Dr. Jackson. OUTPATIENT NEUROLOGIST: Dr. Dee. PRIMARY DIAGNOSES: 1. Status epilepticus, likely breakthrough seizure due to decrease in epileptic medication dosing. 2. Typical related hyperammonemia. 3. Past medical history of seizure disorder. 4. Prior history of benzodiazepine use. 5. Marijuana use. 6. Alcohol use. PERTINENT STUDIES WHILE IN THE HOSPITAL: CTA of the head on 11/20/19, impression: No stenosis or dissection. Chest x-ray on 11/20/19, impression: No active cardiopulmonary disease as noted. EEG, Dr. Jackson's impression: This is an abnormal EEG due to presence of diffuse slowing of the background with no evidence of electrographic seizures. These findings are suggestive of mild to moderate diffuse encephalopathy, which could be due to sedation and postictal state. PERTINENT LABS: Ammonia on 11/21/19 of 128, ammonia on 11/23/19 of 48. HISTORY OF PRESENT ILLNESS/HOSPITAL COURSE: New Gomes is a 24-year-old white male with past medical history significant for seizure disorder and polysubstance use, who presented to the emergency department in status epilepticus. He was in status epilepticus for approximately 40 minutes and was intubated and admitted to the ICU initially. He was promptly started on IV Keppra. His Depakote was discontinued due to him developing hyperammonemia, which was presumed to be Depakote-induced. He was additionally given L- carnitine for this. The patient was later extubated on 11/22/19. He did remain in the ICU for another day and was then transferred to the medical floor for continued management. He had no further seizure activity after that point. The neurologist, Dr. Jackson, continued to follow him. His ammonia levels downtrended to normal limits. Dr. Jackson felt that there was no need for LP or MRI, considering his seizures did not recur and still the leading suspicion for his seizure cause is breakthrough seizure due to subtherapeutic Depakote. Of note, his valproic acid level was low at 44. On day of discharge, the patient is appearing well. He did tell me he felt he had an unsteady gait, but upon Dr. Jackson's evaluation, he felt this was normal especially considering his multiple days of sedation and intubation in the ICU. The patient did express to me some hesitation with taking Keppra as he was on it when he was a teenager and he had what he tells me were some anger issues, though from my perspective it was likely multifactorial especially in the setting of adolescence. We did discuss the fact that at this point, Depakote is relatively contraindicated due to his hyperammonemia. The patient did tell me that he used to abuse benzodiazepines, but he tells me that he has not used them in over a year and it is less likely that the seizure is related to benzodiazepine withdrawal, though this may be possible as the patient's urine drug screen is unreliable for the positive benzodiazepines as he did receive them due to his presenting status epilepticus for treatment. His neurologist on [place] is the neurologist who reportedly told him to start taking his Depakote in the evening only because the patient requested to try to attempt weaning off antiepileptics. It appears that at this point he needs to be on antiepileptic medication indefinitely. His local neurologist is Dr. Dee. Additionally, the patient was tested for COVID-19 while he was in the hospital and the result was negative. PHYSICAL EXAM ON THE DAY OF DISCHARGE: General: Thin elderly white male, sitting on edge of bed, appearing comfortable, in no acute distress. Eyes: PERRL. Sclerae anicteric. ENT: Mucous membranes moist. Lungs: Clear to auscultation throughout. Cardio: Regular rate and rhythm without murmurs, rubs , or gallops. Abdomen: Soft, nontender, nondistended. Extremities: No clubbing, cyanosis, or edema. Neuro: The patient is alert and oriented x3. Heel-toe walking is unsteady and gait does veer to the right at times, but his strength is 5/5 in all extremities. Sensation is grossly intact throughout. Strength appears intact peripherally and centrally as he is able to tiptoe walk and squat. Speech is clear. Skin: Warm, dry and intact. DISCHARGE PLAN: The patient is to follow up with Neurology within 2 weeks. This may be difficult in the setting of the COVID outbreak and if the [facility] Neurology office is unable to follow up with this patient, then Dr. Jackson states that he may be able to follow up with the patient himself via telemedicine if one of the neurologist in the office is unable to do so themselves. The patient is advised to please return to the emergency department if he is experiencing vomiting to the point of not being able to keep down liquids, sudden onset of weakness and tingling in his extremities, changes in mental status or seizure. As previously mentioned, it was discussed that he will need to be on antiepileptic medication indefinitely for stable future. He is to not drive until cleared by a neurologist. I discussed this plan with the patient's parents, per the patient's request, and they are additionally in agreement. DISCHARGE MEDICATIONS: 1. Keppra 1000 mg p.o. b.i.d. 2. Magnesium oxide 400 mg p.o. daily. Discontinued home medications: Depakote 500 mg p.o. at bedtime. CONDITION ON DISCHARGE: Stable. DISPOSITION: Home. TIME SPENT: Approximately 45 minutes was spent on this discharge, approximately half of this time was spent at bedside evaluating the patient and discussing the plan of care. MELLY MARAVILLA [id number]/CPS #: [id number] MTDD
== END 2019-11-24 14:25 | disposition home or self-care (01) | DRG 100 ==
LOC: ED 16:04 → ICU 20:52 → MED 11-23 11:59 → MEDTELE 11-23 21:41
PROVIDERS: ADMIT Family Medicine; ATTEND Internal Medicine
PROC: 0BH18EZ Insertion of Endotracheal Airway into Trachea, Via Natural or Artificial Opening Endoscopic (ICD-10-PCS; principal; 2019-11-20)
PROC: 4A10X4Z Monitoring of Central Nervous Electrical Activity, External Approach (ICD-10-PCS; 2019-11-20)
PROC: 0BP1XDZ Removal of Intraluminal Device from Trachea, External Approach (ICD-10-PCS; 2019-11-22)
DX: G40.901 Epilepsy, unspecified, not intractable, with status epilepticus (principal); R40.2342 Coma scale, best motor response, flexion withdrawal, at arrival to emergency department; R40.2112 Coma scale, eyes open, never, at arrival to emergency department; R40.2212 Coma scale, best verbal response, none, at arrival to emergency department; E72.20 Disorder of urea cycle metabolism, unspecified; F13.20 Sedative, hypnotic or anxiolytic dependence, uncomplicated; G81.91 Hemiplegia, unspecified affecting right dominant side; Z11.59 Encounter for screening for other viral diseases; T42.6X5A Adverse effect of other antiepileptic and sedative-hypnotic drugs, initial encounter; F17.200 Nicotine dependence, unspecified, uncomplicated; E86.0 Dehydration; D72.829 Elevated white blood cell count, unspecified; Y92.9 Unspecified place or not applicable; Z72.89 Other problems related to lifestyle; Z95.810 Presence of automatic (implantable) cardiac defibrillator; Y90.0 Blood alcohol level of less than 20 mg/100 ml; Z79.899 Other long term (current) drug therapy
CPT/HCPCS: 36415; 36600; 70496; 70498; 71045; 80048; 80053; 80164; 80177; 80307; 80320; 81003; 82140; 82330; 82550; 82803; 83605; 83735; 84100; 85025; 85027; 85060; 85610; 87040; 87635; 93005; 94003; 95822; 96374; 96375; 99285; A9270-GY; G0480; J0330; J0610; J1644; J1953; J1955; J2060; J2250; J2704; J3010; Q9967

== ENCOUNTER 2023-05-24 00:54 | Inpatient (IN) ==
[2023-05-24] MEDS ORDERED: Naloxone Nasal Spray 4 MG/0.1 ML NASAL.SPR INTRANASAL ONE (00:57)
[2023-05-24] MEDS ORDERED: NS 0.9% 1000 ml BAG 1,000 ML IV ONE (01:19)
[2023-05-24] MEDS ORDERED: Thiamine IV 100 MG/ML VIAL (only for Bannana Bags !) IVPB ONE (01:23)
[2023-05-24] MEDS ORDERED: Pyridoxine INJ 100 MG/ML VIAL IV ONE (01:24)
[2023-05-24] MEDS ORDERED: FOLIC ACID IVPB SCH (02:00)
[2023-05-24] MEDS ORDERED: NS 0.9% IVPB SCH (02:00)
[2023-05-24] MEDS ORDERED: FOMEPIZOLE IV ONE (02:00)
[2023-05-24] MEDS ORDERED: Folic Acid IV 5 MG/ML 10 ML VIAL (50 mg) IVPB SCH (02:00)
[2023-05-24] MEDS ORDERED: NS 0.9% IV ONE (02:00)
[2023-05-24] MEDS ORDERED: Thiamine IV 100 MG in NS 0.9% 50 ML Q24H IV ONE (03:00)
[2023-05-24 03:27] LABS: Venous Bicarbonate HCO3 25.3 mmol/L (24-28)
[2023-05-24 03:28] LABS: ABS Lymphocytes 1.7 10^3/uL (1.0-4.8); ABS Monocytes 0.4 10^3/uL (0.0-1.1); ABS Neutrophils 11.1 10^3/uL (1.5-7.6); Eosinophil % 0.1 %; Hematocrit 37.8 % (38-53); Hemoglobin 12.7 g/dL (13.2-16.3); Lymphocyte % 12.8 %; Mean Corpuscular Hemoglobin 28.7 pg (27-33); Mean Corpuscular Hgb Conc 33.6 g/dL (31-36); Mean Corpuscular Volume 85.5 fL (80-97); Mean Platelet Volume 9.3 fL (7.5-11.2); Platelet Count 199 10^3/uL (150-450); Red Blood Count 4.42 10^6/uL (4.06-5.63); Red Cell Distribution Width 13.9 % (12-17); White Blood Count 13.2 10^3/uL (3.6-10.2)
[2023-05-24 03:34] LABS: Urine Appearance Clear; Urine Bilirubin Negative (Negative); Urine Blood Negative (Negative); Urine Color Colorless; Urine Glucose Negative (Negative); Urine Ketones Negative (Negative); Urine Nitrite Negative (Negative); Urine Protein Negative (Negative); Urine Specific Gravity 1.005 (1.002-1.030); Urine Urobilinogen Negative (Negative)
[2023-05-24 03:40] LABS: Albumin 4.2 g/dL (3.2-5.2); Anion Gap 9 mmol/L (2-16); CO2 Carbon Dioxide 27 mmol/L (22-32); Chloride 106 mmol/L (101-111); Potassium 3.9 mmol/L (3.5-5.0); Sodium 142 mmol/L (135-145)
[2023-05-24 03:46] LABS: ALT 12 U/L (7-52); AST 13 U/L (13-39); Albumin/Globulin Ratio 2.2 (1-3); Alkaline Phosphatase 62 U/L (35-149); Blood Urea Nitrogen 10 mg/dL (6-24); Creatine Kinase 76 U/L (10-223); Creatinine, Serum 0.74 mg/dL (0.67-1.17); Globulin 1.9 g/dL (2-4); Glucose 111 mg/dL (70-100); Total Protein 6.1 g/dL (6.4-8.9)
[2023-05-24 03:59] LABS: Urine Benzodiazepine Screen Presumptive Positive (None Detect); Urine Cannabinoids Screen Presumptive Positive (None Detect); Urine Opiates Screen None Detected (None Detect)
[2023-05-24] MEDS ORDERED: Haloperidol 5 mg/ml SDV IV/IM 5 MG/ML AMP IM ONE (03:59)
[2023-05-24] MEDS ORDERED: LORazepam 2 mg VIAL 1 ml IM ONE (03:59)
[2023-05-24 04:02] LABS: Acetaminophen < 15 mcg/mL; Alcohol, S < 13 mg/dL (<13); Salicylate < 2.50 mg/dL (<30)
[2023-05-24 04:26] LABS: Osmolality Serum 405 mOsm/kg (275-295)
[2023-05-24] MEDS ORDERED: NS 0.9% 1000 ml BAG 100 ML IV PRN (07:22)
[2023-05-24] MEDS ORDERED: Albumin Human 25% 25 GM/100 ML BTL IV PRN (07:22)
[2023-05-24] MEDS ORDERED: NS 0.9% 1000 ml BAG 200 ML IV PRN (07:22)
[2023-05-24] MEDS ORDERED: [UNRECOGNIZED DRUG - REMARK] INTRANASAL PRN (07:34)
[2023-05-24 07:36] LABS: PCO2 Arterial 45 mmHg (35-45); PO2 Arterial 103 mmHg (80-100)
[2023-05-24 08:24] LABS: ABS Lymphocytes 2.9 10^3/uL (1.0-4.8); ABS Monocytes 0.5 10^3/uL (0.0-1.1); ABS Neutrophils 6.1 10^3/uL (1.5-7.6); ABS Nucleated RBC 0.01 10^3/ul; Eosinophil % 0.3 %; Hematocrit 40.9 % (38-53); Hemoglobin 13.9 g/dL (13.2-16.3); Lymphocyte % 30.5 %; Mean Corpuscular Hemoglobin 28.9 pg (27-33); Mean Corpuscular Hgb Conc 33.9 g/dL (31-36); Mean Corpuscular Volume 85.3 fL (80-97); Mean Platelet Volume 9.2 fL (7.5-11.2); Nucleated Red Blood Cells % 0.1 /100 WBC (0.0-0.4); Platelet Count 222 10^3/uL (150-450); Red Blood Count 4.79 10^6/uL (4.06-5.63); Red Cell Distribution Width 13.9 % (12-17); White Blood Count 9.5 10^3/uL (3.6-10.2)
[2023-05-24 08:29] LABS: Creatinine, Serum 0.68 mg/dL (0.67-1.17); Magnesium 2.1 mg/dL (1.9-2.7); Phosphorus 4.4 mg/dL (2.5-5.0); Potassium 4.1 mmol/L (3.5-5.0); eGFR CKD-EPI 132.3 (>60)
[2023-05-24] MEDS ORDERED: Midazolam 2 mg/2 ml VIAL 1 mg/ml 2 ml VIAL (2 mg) ONE (08:57)
[2023-05-24] MEDS ORDERED: Midazolam 2 mg/2 ml VIAL 1 mg/ml 2 ml VIAL (2 mg) IV SLOW PU ONE (09:05)
[2023-05-24] MEDS: Heparin 1,000 UNIT/ML 10 ml (10,000 UNITS) CATHLAB/DIALYSIS DIALYSIS PRN ×3 (10:01→12:47)
[2023-05-24] MEDS: NS 0.9% IVPB SCH ×3 (11:02→20:27)
[2023-05-24] MEDS: FOLIC ACID IVPB SCH ×3 (11:02→20:27)
[2023-05-24] MEDS ORDERED: Midazolam 5 mg/5 ml VIAL 1 mg/ml 5 ml VIAL (5 mg) ONE (11:53)
[2023-05-24] MEDS ORDERED: Lorazepam PYXIS KEY PRN (12:51)
[2023-05-24] MEDS ORDERED: Midazolam 5 mg/5 ml VIAL 1 mg/ml 5 ml VIAL (5 mg) IV SLOW PU ONE (13:00)
[2023-05-24] MEDS ORDERED: LaCOSAMide VIAL 200 MG in NS 0.9% 50 ML 50 ML IV ONE ×2 (13:20→14:30)
[2023-05-24] MEDS ORDERED: LORazepam 2 mg VIAL 1 ml IV PUSH ONE (14:00)
[2023-05-24] MEDS: NS 0.9% IV SCH (14:36)
[2023-05-24] MEDS: FOMEPIZOLE IV SCH (14:36)
[2023-05-24 15:32] LABS: PCO2 Arterial 43 mmHg (35-45); PO2 Arterial 99 mmHg (80-100)
[2023-05-24 15:52] LABS: Calcium 8.7 mg/dL (8.6-10.3); Potassium 3.5 mmol/L (3.5-5.0)
[2023-05-24 15:58] LABS: Creatinine, Serum 0.6 mg/dL (0.67-1.17); eGFR CKD-EPI 137.4 (>60)
[2023-05-24 16:10] LABS: Hepatitis B Surface Antigen Nonreactive (Nonreactive)
[2023-05-24 16:27] LABS: Hepatitis B Surface Ab Not Immune (Immune)
[2023-05-24 18:03] LABS: Osmolality Serum 320 mOsm/kg (275-295)
[2023-05-24] MEDS: PERAMPANEL 12 MG PO SCH (20:43)
[2023-05-24] MEDS: CENOBAMATE 100 MG PO SCH (20:43)
[2023-05-24] MEDS ORDERED: Midazolam 5 mg/5 ml VIAL 1 mg/ml 5 ml VIAL (5 mg) IV SLOW PU PRN (20:43)
[2023-05-24] MEDS: [UNRECOGNIZED DRUG - OTHER] PO SCH (20:44)
[2023-05-24] MEDS: RUFINAMIDE 400 MG PO SCH (20:44)
[2023-05-25] MEDS: NS 0.9% IV SCH ×2 (02:50→14:05)
[2023-05-25] MEDS: FOMEPIZOLE IV SCH ×2 (02:50→14:05)
[2023-05-25] MEDS: NS 0.9% IVPB SCH ×4 (03:26→23:04)
[2023-05-25] MEDS: FOLIC ACID IVPB SCH ×4 (03:26→23:04)
[2023-05-25 04:34] LABS: ABS Basophils 0.1 10^3/uL (0.0-0.1); ABS Eosinophils 0.1 10^3/uL (0.0-0.5); ABS Monocytes 0.6 10^3/uL (0.0-1.1); ABS Neutrophils 6.1 10^3/uL (1.5-7.6); Eosinophil % 1.2 %; Hematocrit 40.9 % (38-53); Hemoglobin 13.9 g/dL (13.2-16.3); Lymphocyte % 29.8 %; Mean Corpuscular Hemoglobin 28.9 pg (27-33); Mean Platelet Volume 8.8 fL (7.5-11.2); Platelet Count 202 10^3/uL (150-450); Red Blood Count 4.82 10^6/uL (4.06-5.63); White Blood Count 9.9 10^3/uL (3.6-10.2)
[2023-05-25 04:48] LABS: Calcium 8.8 mg/dL (8.6-10.3); Creatinine, Serum 0.76 mg/dL (0.67-1.17); Magnesium 1.7 mg/dL (1.9-2.7); Phosphorus 4.5 mg/dL (2.5-5.0); Potassium 3.4 mmol/L (3.5-5.0); eGFR CKD-EPI 127.9 (>60)
[2023-05-25] MEDS ORDERED: Potassium Chlor 20 meq TAB.ER PO ONE ×2 (04:58→07:18)
[2023-05-25] MEDS ORDERED: Magnesium Sulfate 2 gm BAG 2 GM/50 ML BAG IVPB ONE ×2 (04:59→07:18)
[2023-05-25 08:39] LABS: Osmolality Serum 320 mOsm/kg (275-295)
[2023-05-25] MEDS: RUFINAMIDE 400 MG PO SCH ×2 (08:48→20:54)
[2023-05-25] MEDS ORDERED: NS 0.9% 1000 ml BAG 100 ML IV PRN (10:42)
[2023-05-25] MEDS ORDERED: Albumin Human 25% 25 GM/100 ML BTL IV PRN (10:42)
[2023-05-25] MEDS ORDERED: NS 0.9% 1000 ml BAG 200 ML IV PRN (10:42)
[2023-05-25] MEDS ORDERED: Midazolam 5 mg/5 ml VIAL 1 mg/ml 5 ml VIAL (5 mg) ONE ×6 (12:18→13:14)
[2023-05-25] MEDS ORDERED: Midazolam 10 mg/10 ml VIAL 1 mg/ml 10 ml VIAL (10 mg) IV SLOW PU PRN (12:19)
[2023-05-25] MEDS ORDERED: Midazolam 5 mg/5 ml VIAL 1 mg/ml 5 ml VIAL (5 mg) IV SLOW PU ONE ×5 (12:33→13:29)
[2023-05-25] MEDS: Midazolam 5 mg/5 ml VIAL 1 mg/ml 5 ml VIAL (5 mg) IV SLOW PU ONE ×2 (13:05→13:36)
[2023-05-25] MEDS: Heparin 1,000 UNIT/ML 10 ml (10,000 UNITS) CATHLAB/DIALYSIS DIALYSIS PRN ×4 (13:25→16:31)
[2023-05-25] MEDS ORDERED: Lorazepam PYXIS KEY PRN ×2 (13:29→14:27)
[2023-05-25] MEDS ORDERED: LORazepam 2 mg VIAL 1 ml IV PUSH ONE ×2 (13:29→14:27)
[2023-05-25] MEDS ORDERED: LORazepam 2 mg VIAL 1 ml ONE (13:45)
[2023-05-25] MEDS ORDERED: Dexmedetomidine 1,000 MCG in NS 0.9% 250 ml 240 ML IV SCH (15:00)
[2023-05-25] MEDS: CENOBAMATE 100 MG PO SCH (20:52)
[2023-05-25] MEDS: [UNRECOGNIZED DRUG - OTHER] PO SCH (20:53)
[2023-05-25] MEDS: PERAMPANEL 12 MG PO SCH (20:53)
[2023-05-25 23:03] LABS: Osmolality Serum 290 mOsm/kg (275-295)
[2023-05-25] MEDS ORDERED: Lactated Ringers 1000 ml BAG 1,000 ML IV SCH (23:45)
[2023-05-26] MEDS ORDERED: Midazolam 5 mg/5 ml VIAL 1 mg/ml 5 ml VIAL (5 mg) ONE (00:46)
[2023-05-26] MEDS ORDERED: Acetaminophen IV 1 GM/100ML 1,000 MG/100 ML BAG IV ONE (01:52)
[2023-05-26] MEDS: Acetaminophen IV 1 GM/100ML 1,000 MG/100 ML BAG IV PRN ×2 (01:54→19:49)
[2023-05-26] MEDS: FOMEPIZOLE IV SCH (02:16)
[2023-05-26] MEDS: NS 0.9% IV SCH (02:16)
[2023-05-26] MEDS: FOLIC ACID IVPB SCH (06:24)
[2023-05-26] MEDS: NS 0.9% IVPB SCH (06:24)
[2023-05-26 06:35] LABS: ABS Eosinophils 0.1 10^3/uL (0.0-0.5); ABS Lymphocytes 2.2 10^3/uL (1.0-4.8); ABS Monocytes 0.6 10^3/uL (0.0-1.1); ABS Neutrophils 5.9 10^3/uL (1.5-7.6); ABS Nucleated RBC 0.01 10^3/ul; Eosinophil % 0.9 %; Hematocrit 40.2 % (38-53); Hemoglobin 13.8 g/dL (13.2-16.3); Mean Corpuscular Hemoglobin 29.2 pg (27-33); Mean Corpuscular Hgb Conc 34.4 g/dL (31-36); Mean Corpuscular Volume 84.9 fL (80-97); Mean Platelet Volume 9.1 fL (7.5-11.2); Nucleated Red Blood Cells % 0.1 /100 WBC (0.0-0.4); Platelet Count 201 10^3/uL (150-450); Red Blood Count 4.74 10^6/uL (4.06-5.63); Red Cell Distribution Width 13.6 % (12-17); White Blood Count 8.9 10^3/uL (3.6-10.2)
[2023-05-26 07:02] LABS: Creatinine, Serum 0.85 mg/dL (0.67-1.17); Magnesium 1.8 mg/dL (1.9-2.7); eGFR CKD-EPI 123.7 (>60)
[2023-05-26] MEDS: RUFINAMIDE 400 MG PO SCH ×2 (09:39→20:45)
[2023-05-26 12:50] LABS: Acetone Level Not Detected; Ethanol Not Detected; Isopropanol Not Detected
[2023-05-26] MEDS: Ondansetron 4 mg VIAL 2 MG/ML 2 ml VIAL IV PRN (15:10)
[2023-05-26] MEDS ORDERED: LORazepam 2 mg VIAL 1 ml ONE (17:10)
[2023-05-26] MEDS ORDERED: Lorazepam PYXIS KEY PRN (17:17)
[2023-05-26] MEDS ORDERED: LORazepam 2 mg VIAL 1 ml IV PUSH ONE (17:17)
[2023-05-26] MEDS ORDERED: Ketamine HCL 50 mg/ml 10 ml VIAL (500 MG) IV ONE (20:15)
[2023-05-26] MEDS: CENOBAMATE 100 MG PO SCH (20:44)
[2023-05-26] MEDS: [UNRECOGNIZED DRUG - OTHER] PO SCH (20:45)
[2023-05-26] MEDS: PERAMPANEL 12 MG PO SCH (20:46)
[2023-05-27 05:19] LABS: ABS Basophils 0.1 10^3/uL (0.0-0.1); ABS Eosinophils 0.1 10^3/uL (0.0-0.5); ABS Lymphocytes 2.8 10^3/uL (1.0-4.8); ABS Monocytes 0.8 10^3/uL (0.0-1.1); ABS Neutrophils 8.3 10^3/uL (1.5-7.6); ABS Nucleated RBC 0.01 10^3/ul; Eosinophil % 0.6 %; Hematocrit 43.8 % (38-53); Hemoglobin 14.8 g/dL (13.2-16.3); Lymphocyte % 23.1 %; Mean Corpuscular Hemoglobin 28.8 pg (27-33); Mean Corpuscular Hgb Conc 33.7 g/dL (31-36); Mean Corpuscular Volume 85.5 fL (80-97); Mean Platelet Volume 9.1 fL (7.5-11.2); Nucleated Red Blood Cells % 0.1 /100 WBC (0.0-0.4); Platelet Count 232 10^3/uL (150-450); Red Blood Count 5.12 10^6/uL (4.06-5.63); White Blood Count 11.9 10^3/uL (3.6-10.2)
[2023-05-27 05:32] LABS: Calcium 9.6 mg/dL (8.6-10.3); Creatinine, Serum 0.79 mg/dL (0.67-1.17); Potassium 3.8 mmol/L (3.5-5.0); eGFR CKD-EPI 126.4 (>60)
[2023-05-27 05:45] LABS: Osmolality Serum 300 mOsm/kg (275-295)
[2023-05-27] MEDS: Ondansetron 4 mg VIAL 2 MG/ML 2 ml VIAL IV PRN (06:51)
[2023-05-27] MEDS: RUFINAMIDE 400 MG PO SCH (09:03)
[2023-05-27 09:14] VITALS: BP 111/59
== END 2023-05-27 10:20 | DRG 812 ==
LOC: ED 00:54 → EDHOLD 06:51 → ICU 08:27
PROVIDERS: ADMIT Hospitalist; ATTEND Hospitalist

== ENCOUNTER 2023-12-09 13:47 | Inpatient (IN) ==
[2023-12-09] MEDS ORDERED: LORazepam 2 mg VIAL 1 ml ONE (13:57)
[2023-12-09] MEDS ORDERED: Lorazepam PYXIS KEY PRN (13:58)
[2023-12-09] MEDS: LORazepam 2 mg VIAL 1 ml IV PUSH ONE (14:10)
[2023-12-09] MEDS ORDERED: Succinylcholine 200 mg VIAL 20 mg/ml 10 ml VIAL (200 mg) ONE (14:34)
[2023-12-09] MEDS ORDERED: Rocuronium 50 mg VIAL 10 mg/ml 5 ml VIAL (50 mg) ONE ×2 (14:34→14:41)
[2023-12-09] MEDS: diazePAM INJ CARPUJECT 5 MG/ML SYRINGE IV ONE (14:37)
[2023-12-09] MEDS: Haloperidol 5 mg/ml SDV IV/IM 5 MG/ML AMP IM ONE (14:37)
[2023-12-09] MEDS ORDERED: Etomidate 40 mg/20 ml (2 MG/ML) 20 ml VIAL (40 mg) ONE (14:41)
[2023-12-09] MEDS: Etomidate 20 mg/10 ml 2 MG/ML 10 ml VIAL IV ONE (14:43)
[2023-12-09] MEDS: Rocuronium 50 mg VIAL 10 mg/ml 5 ml VIAL (50 mg) IV ONE (14:44)
[2023-12-09] MEDS: Propofol 10 mg/ml 100 ML BTL 1,000 MG/100 ML BTL IV SCH ×2 (14:46→17:36)
[2023-12-09] MEDS: NS 0.9% 1000 ml BAG 1,000 ML IV ONE (14:46)
[2023-12-09] MEDS ORDERED: Midazolam 5 mg/ml concentrated 5 mg/ml 1 ml VIAL ONE ×2 (15:06→15:12)
[2023-12-09] MEDS: Midazolam 5 mg/5 ml VIAL 1 mg/ml 5 ml VIAL (5 mg) IV SLOW PU ONE ×2 (15:07→15:12)
[2023-12-09 15:08] LABS: PCO2 Arterial 43 mmHg (35-45); PO2 Arterial 394 mmHg (80-100)
[2023-12-09 15:15] LABS: ABS Basophils 0.1 10^3/uL (0.0-0.1); ABS Lymphocytes 2.7 10^3/uL (1.0-4.8); ABS Monocytes 1.1 10^3/uL (0.0-1.1); ABS Neutrophils 11.4 10^3/uL (1.5-7.6); ABS Nucleated RBC 0.01 10^3/ul; Eosinophil % 0.2 %; Hematocrit 46.8 % (38-53); Hemoglobin 15.5 g/dL (13.2-16.3); Lymphocyte % 17.6 %; Mean Corpuscular Hemoglobin 28.6 pg (27-33); Mean Corpuscular Hgb Conc 33.1 g/dL (31-36); Mean Corpuscular Volume 86.3 fL (80-97); Nucleated Red Blood Cells % 0.1 %/100WBC (0.0-0.8); Platelet Count 312 10^3/uL (150-450); Red Blood Count 5.43 10^6/uL (4.06-5.63); Red Cell Distribution Width 14.1 % (12-17); White Blood Count 15.3 10^3/uL (3.6-10.2)
[2023-12-09 15:34] LABS: ALT 11 U/L (7-52); AST 16 U/L (13-39); Albumin 5.1 g/dL (3.2-5.2); Albumin/Globulin Ratio 2.3 (1-3); Alcohol, S < 13 mg/dL (<13); Alkaline Phosphatase 80 U/L (35-149); Anion Gap 17 mmol/L (2-16); Blood Urea Nitrogen 11 mg/dL (6-24); CO2 Carbon Dioxide 19 mmol/L (22-32); Calcium 9.8 mg/dL (8.6-10.3); Chloride 107 mmol/L (101-111); Creatine Kinase 178 U/L (10-223); Creatinine, Serum 0.93 mg/dL (0.67-1.17); Globulin 2.2 g/dL (2-4); Glucose 137 mg/dL (70-100); Magnesium 1.8 mg/dL (1.9-2.7); Potassium 3.7 mmol/L (3.5-5.0); Sodium 143 mmol/L (135-145); Total Bilirubin 0.4 mg/dL (0.2-1.0); Total Protein 7.3 g/dL (6.4-8.9); eGFR CKD-EPI 116.1 (>60)
[2023-12-09 15:40] LABS: Urine Appearance Clear; Urine Bilirubin Negative (Negative); Urine Blood Negative (Negative); Urine Color Yellow; Urine Glucose Negative (Negative); Urine Ketones Negative (Negative); Urine Nitrite Negative (Negative); Urine Protein Trace (Negative); Urine Specific Gravity 1.024 (1.002-1.030); Urine Urobilinogen Negative (Negative); Urine pH 5.5 (5.0-8.0)
[2023-12-09 15:45] LABS: TSH Ultra Thyroid Stim Horm 2.24 mcIU/mL (0.34-5.60)
[2023-12-09 16:02] LABS: Urine Benzodiazepine Screen Presumptive Positive (None Detect); Urine Cannabinoids Screen Presumptive Positive (None Detect); Urine Opiates Screen None Detected (None Detect)
[2023-12-09] MEDS: Midazolam PREMIXBAG 1 MG/ML NS 100 ML IV SCH ×3 (16:17→17:48)
[2023-12-09] MEDS: LACOSAMIDE IV SCH (17:32)
[2023-12-09] MEDS: NS 0.9% IV SCH (17:32)
[2023-12-09] MEDS: fentaNYL INFUSION 50 mcg/mL VL 2,500 MCG/50 ML VIAL IV SCH ×2 (17:37→19:07)
[2023-12-09] MEDS: Enoxaparin 40 MG/0.4 ML SYR SUBCUT SCH (18:09)
[2023-12-09] MEDS: Pantoprazole VIAL 40 MG VIAL IV SCH (18:09)
[2023-12-09] MEDS: Chlorhexidine MOUTHWASH 0.12% 15 ML UDC SWISH SPIT SCH (18:09)
[2023-12-09] MEDS: Magnesium Sulfate 2 gm BAG 2 GM/50 ML BAG IVPB ONE (18:09)
[2023-12-09] MEDS: KCL 20 MEQ/100 ML IVPREMIX 20 MEQ/100 ML BAG IV SCH (18:10)
[2023-12-09 19:25] LABS: Urine Buprenorphine Screen None Detected (None Detect); Urine Fentanyl Screen None Detected (None Detect); Urine Hydrocodone Screen None Detected (None Detect)
[2023-12-09 19:57] LABS: Free T4 0.62 ng/dL (0.61-1.12)
[2023-12-09] MEDS: CENOBAMATE 100 MG PO SCH (21:16)
[2023-12-09] MEDS: PERAMPANEL 6 MG PO SCH (21:21)
[2023-12-09] MEDS: PERAMPANEL 2 MG PO SCH (21:21)
[2023-12-09] MEDS: CENOBAMATE 100 MG PO ONE (21:21)
[2023-12-10 04:26] LABS: ABS Eosinophils 0.1 10^3/uL (0.0-0.5); ABS Lymphocytes 2.1 10^3/uL (1.0-4.8); ABS Monocytes 0.8 10^3/uL (0.0-1.1); ABS Neutrophils 6.2 10^3/uL (1.5-7.6); ABS Nucleated RBC 0.02 10^3/ul; Hematocrit 42.2 % (38-53); Hemoglobin 14.5 g/dL (13.2-16.3); Lymphocyte % 22.9 %; Mean Corpuscular Hemoglobin 29.1 pg (27-33); Mean Corpuscular Hgb Conc 34.3 g/dL (31-36); Mean Corpuscular Volume 84.8 fL (80-97); Mean Platelet Volume 8.7 fL (7.5-11.2); Nucleated Red Blood Cells % 0.2 %/100WBC (0.0-0.8); Platelet Count 235 10^3/uL (150-450); Red Blood Count 4.98 10^6/uL (4.06-5.63); Red Cell Distribution Width 14.3 % (12-17); White Blood Count 9.4 10^3/uL (3.6-10.2)
[2023-12-10 05:03] LABS: Calcium 8.9 mg/dL (8.6-10.3); Creatinine, Serum 0.9 mg/dL (0.67-1.17); Magnesium 2.1 mg/dL (1.9-2.7); eGFR CKD-EPI 120.8 (>60)
[2023-12-10] MEDS: Lactated Ringers 1000 ml BAG 1,000 ML IV SCH ×2 (06:02→16:48)
[2023-12-10] MEDS: CENOBAMATE 100 MG PO SCH (07:54)
[2023-12-10] MEDS: Albumin Human 5% 12.5 GM/250 ML BTL IV ONE (10:12)
[2023-12-10] MEDS: Tetracaine 0.5% OPTH.SOL 4 ML BTL LEFT EYE SCH (14:21)
[2023-12-10] MEDS: Fluorescein Sodium TOPICAL TEST STRIP OPHTHALMIC ONE (14:22)
[2023-12-10] MEDS: Tobramycin 0.3% OPHTH.OINT 1 APPLIC TUBE LEFT EYE SCH (16:24)
[2023-12-10] MEDS: Midazolam 5 mg/5 ml VIAL 1 mg/ml 5 ml VIAL (5 mg) ONE (16:48)
[2023-12-10] MEDS: Midazolam 5 mg/5 ml VIAL 1 mg/ml 5 ml VIAL (5 mg) IV SLOW PU ONE ×2 (16:52→21:14)
[2023-12-10] MEDS: Midazolam PREMIXBAG 1 MG/ML NS 100 ML IV SCH ×2 (17:16→17:58)
[2023-12-10] MEDS ORDERED: Sodium Chloride CONC. 4 MEQ/ML 77 MEQ in D10W 1000 ml BAG 1,000 ML IV SCH (19:00)
[2023-12-10] MEDS ORDERED: Zosyn per Pharmacy NOTE FOLLOW UP SCH (19:00)
[2023-12-10] MEDS: ZOSYN 3.375 GM x ONE DOSE over 30 miuntes IV (20:11)
[2023-12-10] MEDS: Acetaminophen IV 1 GM/100ML 1,000 MG/100 ML BAG IV PRN (20:53)
[2023-12-10] MEDS: ZOSYN 3.375 GM Q8H per EXTENDED INFUSION IV SCH (23:46)
[2023-12-11 00:11] LABS: HDL Cholesterol 41.9 mg/dL
[2023-12-11 05:01] LABS: ABS Basophils 0.1 10^3/uL (0.0-0.1); ABS Eosinophils 0.1 10^3/uL (0.0-0.5); ABS Lymphocytes 1.4 10^3/uL (1.0-4.8); ABS Monocytes 0.9 10^3/uL (0.0-1.1); ABS Neutrophils 14.2 10^3/uL (1.5-7.6); Eosinophil % 0.4 %; Hematocrit 39.3 % (38-53); Hemoglobin 13.4 g/dL (13.2-16.3); Lymphocyte % 8.3 %; Mean Corpuscular Hemoglobin 28.9 pg (27-33); Mean Corpuscular Hgb Conc 34.1 g/dL (31-36); Mean Corpuscular Volume 84.8 fL (80-97); Mean Platelet Volume 8.7 fL (7.5-11.2); Platelet Count 202 10^3/uL (150-450); Red Blood Count 4.64 10^6/uL (4.06-5.63); Red Cell Distribution Width 14.1 % (12-17); White Blood Count 16.6 10^3/uL (3.6-10.2)
[2023-12-11 05:53] LABS: Calcium 7.9 mg/dL (8.6-10.3); Magnesium 1.6 mg/dL (1.9-2.7); eGFR CKD-EPI 106.5 (>60)
[2023-12-11] MEDS: Propofol 10 mg/ml 100 ML BTL 1,000 MG/100 ML BTL IV SCH (08:52)
[2023-12-11] MEDS: Magnesium Sulfate 2 gm BAG 2 GM/50 ML BAG IVPB ONE (10:07)
[2023-12-12 04:36] LABS: ABS Basophils 0.1 10^3/uL (0.0-0.1); ABS Eosinophils 0.1 10^3/uL (0.0-0.5); ABS Lymphocytes 1.2 10^3/uL (1.0-4.8); ABS Nucleated RBC 0.01 10^3/ul; Eosinophil % 0.5 %; Hematocrit 36.8 % (38-53); Hemoglobin 12.3 g/dL (13.2-16.3); Mean Corpuscular Hemoglobin 28.3 pg (27-33); Mean Corpuscular Hgb Conc 33.4 g/dL (31-36); Mean Corpuscular Volume 84.7 fL (80-97); Mean Platelet Volume 8.5 fL (7.5-11.2); Platelet Count 196 10^3/uL (150-450); Red Blood Count 4.35 10^6/uL (4.06-5.63); Red Cell Distribution Width 13.9 % (12-17); White Blood Count 17.4 10^3/uL (3.6-10.2)
[2023-12-12 04:54] LABS: Calcium 7.7 mg/dL (8.6-10.3); Creatinine, Serum 0.74 mg/dL (0.67-1.17); Magnesium 1.6 mg/dL (1.9-2.7); Potassium 4.1 mmol/L (3.5-5.0); eGFR CKD-EPI 128.2 (>60)
[2023-12-12] MEDS ORDERED: Vancomycin per Pharmacy 1 EA NOTE FOLLOW UP SCH (09:00)
[2023-12-12] MEDS: HYDROmorphone 1 MG/1 ML SYRINGE IV SLOW PU ONE (09:21)
[2023-12-12] MEDS: Vancomycin 1,500 MG in NS 0.9% 250 ml 250 ML IVPB ONE (10:07)
[2023-12-12 10:11] LABS: Body Fluid Source Cerebral Spinal
[2023-12-12 10:25] LABS: CSF Glucose 99 mg/dL (40-70)
[2023-12-12 10:38] LABS: CSF Body Fluid WBC 6 /mcL
[2023-12-12 11:06] LABS: Body Fluid Appearance Clear; Body Fluid Color Colorless; Body Fluid Total Cells Counted 3
[2023-12-12 11:07] LABS: CSF Tube # 4
[2023-12-12] MEDS: Magnesium Sulfate 2 gm BAG 2 GM/50 ML BAG IVPB ONE (11:10)
[2023-12-12] MEDS: Furosemide 40 mg/4 ml IV VIAL IV SLOW PU ONE (16:42)
[2023-12-12] MEDS ORDERED: Tetracaine 0.5% OPTH.SOL 4 ML BTL LEFT EYE SCH (18:00)
[2023-12-12] MEDS ORDERED: Vancomycin 1000 MG in NS 0.9% 250 ML IVPB SCH (18:00)
[2023-12-12] MEDS: Fluorescein Sodium TOPICAL TEST STRIP OPHTHALMIC ONE (18:05)
[2023-12-12] MEDS: Propofol 10 mg/ml 100 ML BTL 1,000 MG/100 ML BTL IV SCH (20:15)
[2023-12-12] MEDS: Midazolam PREMIXBAG 1 MG/ML NS 100 ML IV SCH (20:35)
[2023-12-12] MEDS: Lactated Ringers 1000 ml BAG 750 ML IV ONE (22:01)
[2023-12-13 05:13] LABS: ABS Eosinophils 0.2 10^3/uL (0.0-0.5); ABS Lymphocytes 0.9 10^3/uL (1.0-4.8); ABS Monocytes 0.8 10^3/uL (0.0-1.1); ABS Neutrophils 10.2 10^3/uL (1.5-7.6); Eosinophil % 1.4 %; Hematocrit 34.7 % (38-53); Hemoglobin 11.7 g/dL (13.2-16.3); Lymphocyte % 7.3 %; Mean Corpuscular Hemoglobin 28.5 pg (27-33); Mean Corpuscular Hgb Conc 33.8 g/dL (31-36); Mean Corpuscular Volume 84.5 fL (80-97); Mean Platelet Volume 8.6 fL (7.5-11.2); Platelet Count 206 10^3/uL (150-450); Red Blood Count 4.11 10^6/uL (4.06-5.63); Red Cell Distribution Width 14.2 % (12-17); White Blood Count 12.1 10^3/uL (3.6-10.2)
[2023-12-13 06:13] LABS: Albumin 3.3 g/dL (3.2-5.2); Albumin/Globulin Ratio 1.7 (1-3); Calcium 7.7 mg/dL (8.6-10.3); Creatinine, Serum 0.66 mg/dL (0.67-1.17); Globulin 1.9 g/dL (2-4); HDL Cholesterol 37.2 mg/dL; Magnesium 1.7 mg/dL (1.9-2.7); Potassium 4.3 mmol/L (3.5-5.0); Total Bilirubin 0.4 mg/dL (0.2-1.0); Total Protein 5.2 g/dL (6.4-8.9); eGFR CKD-EPI 132.7 (>60)
[2023-12-13] MEDS: Magnesium Sulfate 2 gm BAG 2 GM/50 ML BAG IVPB ONE (08:42)
[2023-12-13] MEDS: Vancomycin Trough Check NOTE FOLLOW UP ONE (10:54)
[2023-12-13] MEDS: Dexmedetomidine 1,000 MCG in NS 0.9% 250 ml 240 ML IV SCH (10:54)
[2023-12-13] MEDS: Midazolam 10 mg/10 ml VIAL 1 mg/ml 10 ml VIAL (10 mg) IV SLOW PU PRN (11:52)
[2023-12-13] MEDS: HYDROmorphone 1 MG/1 ML SYRINGE IV SLOW PU PRN ×2 (14:07→21:34)
[2023-12-13] MEDS: Rocuronium 50 mg VIAL 10 mg/ml 5 ml VIAL (50 mg) IV ONE ×2 (16:19→20:40)
[2023-12-13] MEDS: Gadoteridol (CONTRAST) 279.3 MG/ML 10 ML IV ONE (21:39)
[2023-12-13] MEDS: Norepinephrine 4 MG/250mL D5W 4,000 MCG/250 ML BAG IV SCH (23:13)
[2023-12-14] MEDS: Midazolam 5 mg/5 ml VIAL 1 mg/ml 5 ml VIAL (5 mg) ONE (01:32)
[2023-12-14] MEDS: Midazolam 10 mg/10 ml VIAL 1 mg/ml 10 ml VIAL (10 mg) IV SLOW PU ONE (01:35)
[2023-12-14 04:13] LABS: Hematocrit 35.6 % (38-53); Mean Corpuscular Hemoglobin 28.8 pg (27-33); Mean Corpuscular Hgb Conc 33.7 g/dL (31-36); Mean Corpuscular Volume 85.3 fL (80-97); Mean Platelet Volume 8.6 fL (7.5-11.2); Platelet Count 246 10^3/uL (150-450); Red Blood Count 4.18 10^6/uL (4.06-5.63); Red Cell Distribution Width 14.1 % (12-17); White Blood Count 12.7 10^3/uL (3.6-10.2)
[2023-12-14] MEDS: Ketamine HCL 50 mg/ml 10 ml VIAL (500 MG) IV ONE ×2 (04:40→17:28)
[2023-12-14 04:52] LABS: Albumin 3.2 g/dL (3.2-5.2); Albumin/Globulin Ratio 1.5 (1-3); Calcium 7.8 mg/dL (8.6-10.3); Creatinine, Serum 0.71 mg/dL (0.67-1.17); Globulin 2.1 g/dL (2-4); Magnesium 1.6 mg/dL (1.9-2.7); Potassium 4.3 mmol/L (3.5-5.0); Total Bilirubin 0.5 mg/dL (0.2-1.0); Total Protein 5.3 g/dL (6.4-8.9); eGFR CKD-EPI 129.8 (>60)
[2023-12-14 05:13] LABS: ABS Eosinophils 0.2 10^3/uL (0.0-0.5); ABS Lymphocytes 0.7 10^3/uL (1.0-4.8); ABS Monocytes 1.2 10^3/uL (0.0-1.1); ABS Neutrophils 10.5 10^3/uL (1.5-7.6); Eosinophil % 1.4 %; Giant Platelets Present; Lymphocyte % 5.6 %
[2023-12-14] MEDS: Magnesium Sulfate 2 gm BAG 2 GM/50 ML BAG IVPB ONE (05:39)
[2023-12-14] MEDS: Midazolam PREMIXBAG 1 MG/ML NS 100 ML IV SCH ×2 (13:59→15:59)
[2023-12-14] MEDS: Ketamine INFUS(restricted) NS 500 MG/500 ML BAG IV SCH (17:30)
[2023-12-14] MEDS: fentaNYL INFUSION 50 mcg/mL VL 2,500 MCG/50 ML VIAL IV SCH (19:14)
[2023-12-14] MEDS: Rocuronium 50 mg VIAL 10 mg/ml 5 ml VIAL (50 mg) IV ONE (22:50)
[2023-12-15 00:23] LABS: Resp Rate 16
[2023-12-15 00:25] LABS: PCO2 Arterial 45 mmHg (35-45); PO2 Arterial 62 mmHg (80-100)
[2023-12-15] MEDS: Rocuronium 50 mg VIAL 10 mg/ml 5 ml VIAL (50 mg) ONE ×2 (01:54→08:10)
[2023-12-15] MEDS: Acetylcysteine INH SOL (RT) 200 MG/ML 4 ML VIAL INH ONE (02:59)
[2023-12-15] MEDS: Albuterol 2.5mg/3 ml (0.083%) NEB.SOLN INH ONE ×2 (03:00→03:01)
[2023-12-15 06:06] LABS: Hematocrit 35.6 % (38-53); Hemoglobin 11.8 g/dL (13.2-16.3); Mean Corpuscular Hemoglobin 28.4 pg (27-33); Mean Corpuscular Hgb Conc 33.1 g/dL (31-36); Mean Corpuscular Volume 85.8 fL (80-97); Mean Platelet Volume 8.3 fL (7.5-11.2); Platelet Count 237 10^3/uL (150-450); Red Blood Count 4.15 10^6/uL (4.06-5.63); Red Cell Distribution Width 14.4 % (12-17); White Blood Count 15.8 10^3/uL (3.6-10.2)
[2023-12-15 06:24] LABS: Albumin 2.9 g/dL (3.2-5.2); Albumin/Globulin Ratio 1.5 (1-3); C Reactive Protein 328.96 mg/L (<8.01); Calcium 7.5 mg/dL (8.6-10.3); Creatinine, Serum 0.61 mg/dL (0.67-1.17); Magnesium 1.7 mg/dL (1.9-2.7); Phosphorus 3.5 mg/dL (2.5-5.0); Potassium 4.2 mmol/L (3.5-5.0); Total Bilirubin 0.6 mg/dL (0.2-1.0); Total Protein 4.9 g/dL (6.4-8.9); eGFR CKD-EPI 135.9 (>60)
[2023-12-15 07:16] LABS: ABS Basophils 0.1 10^3/uL (0.0-0.1); ABS Eosinophils 0.3 10^3/uL (0.0-0.5); ABS Lymphocytes 0.8 10^3/uL (1.0-4.8); ABS Monocytes 0.8 10^3/uL (0.0-1.1); ABS Neutrophils 13.7 10^3/uL (1.5-7.6); ABS Nucleated RBC 0.01 10^3/ul; Eosinophil % 1.9 %; Lymphocyte % 5.1 %; Nucleated Red Blood Cells % 0.1 %/100WBC (0.0-0.8)
[2023-12-15 07:17] LABS: RBC Morphology Normal (Normal)
[2023-12-15 08:16] VITALS: BP 147/92
[2023-12-15] MEDS: Ketamine HCL 50 mg/ml 10 ml VIAL (500 MG) IV ONE (08:42)
[2023-12-15] MEDS: Acetylcysteine INHALATION SOL 200 MG/ML NEB.SOLN 10 ML ONE (08:47)
[2023-12-15] MEDS: Ketamine HCL 50 mg/ml 10 ml VIAL (500 MG) ONE (09:10)
[2023-12-15] MEDS: Rocuronium 50 mg VIAL 10 mg/ml 5 ml VIAL (50 mg) IV ONE (10:04)
[2023-12-20 10:17] LABS: AGNA-1, CSF Negative (Negative); ANNA-1, CSF Negative (Negative); ANNA-2, CSF Negative (Negative); ANNA-3, CSF Negative (Negative); Amphiphysin Ab, CSF Negative (Negative); CRMP-5-IgG, CSF Negative (Negative); IFA Notes None.; PCA-1, CSF Negative (Negative); PCA-2, CSF Negative (Negative); PCA-Tr, CSF Negative (Negative)
[2023-12-21 18:18] LABS: ANNA-1, S Negative (Negative); ANNA-2, S Negative (Negative); DPPX Ab IFA, S Negative (Negative); GFAP IFA, S Negative (Negative); IFA Notes None.; NIF IFA, S Negative (Negative); Neurochondrin IFA, S Negative (Negative); mGluR1 Ab IFA, S Negative (Negative)
== END 2023-12-15 09:55 | disposition short-term general hospital (02) | DRG 53 ==
LOC: ED 13:47 → EDHOLD 15:41 → ICU 17:14
PROVIDERS: ADMIT Internal Medicine Critical Care Medicine; ATTEND Student in an Organized Health Care Education/Training Program

== ENCOUNTER 2024-04-09 20:27 | Inpatient (IN) ==
[2024-04-09] MEDS ORDERED: Lorazepam PYXIS KEY PRN ×5 (20:54→23:20)
[2024-04-09] MEDS: LORazepam 2 mg VIAL 1 ml IV PUSH ONE ×4 (21:10→23:13)
[2024-04-09] MEDS: diazePAM INJ CARPUJECT 5 MG/ML SYRINGE IV ONE (21:16)
[2024-04-09 21:23] LABS: Hematocrit 43.2 % (38-53); Hemoglobin 14.3 g/dL (13.2-16.3); Mean Corpuscular Hemoglobin 24.8 pg (27-33); Mean Corpuscular Hgb Conc 33.2 g/dL (31-36); Mean Corpuscular Volume 74.7 fL (80-97); Mean Platelet Volume 7.6 fL (7.5-11.2); Platelet Count 473 10^3/uL (150-450); Red Blood Count 5.79 10^6/uL (4.06-5.63); Red Cell Distribution Width 16.6 % (12-17); White Blood Count 8.2 10^3/uL (3.6-10.2)
[2024-04-09 21:24] LABS: INR 0.99 (0.83-1.13)
[2024-04-09 21:24] LABS: Urine Appearance Clear; Urine Bilirubin Negative (Negative); Urine Blood Negative (Negative); Urine Color Colorless; Urine Glucose Negative (Negative); Urine Ketones 1+ (Negative); Urine Nitrite Negative (Negative); Urine Protein Negative (Negative); Urine Specific Gravity 1.003 (1.002-1.030); Urine Urobilinogen Negative (Negative)
[2024-04-09 21:36] LABS: Urine Benzodiazepine Screen Presumptive Positive (None Detect); Urine Cannabinoids Screen Presumptive Positive (None Detect); Urine Opiates Screen None Detected (None Detect)
[2024-04-09 21:47] LABS: ABS Basophils 0.1 10^3/uL (0.0-0.1); ABS Lymphocytes 2.5 10^3/uL (1.0-4.8); ABS Monocytes 0.3 10^3/uL (0.0-1.1); ABS Neutrophils 5.3 10^3/uL (1.5-7.6); ABS Nucleated RBC 0.01 10^3/ul; Anisocytosis 1+; Lymphocyte % 30.2 %; Microcytosis 2+; Nucleated Red Blood Cells % 0.1 %/100WBC (0.0-0.8)
[2024-04-09 22:06] LABS: ALT 13 U/L (7-52); AST 13 U/L (13-39); Acetaminophen < 15 mcg/mL; Albumin 4.9 g/dL (3.2-5.2); Albumin/Globulin Ratio 1.8 (1-3); Alkaline Phosphatase 63 U/L (35-149); Anion Gap 12 mmol/L (2-16); Blood Urea Nitrogen 6 mg/dL (6-24); C Reactive Protein < 1.00 mg/L (<8.01); CO2 Carbon Dioxide 25 mmol/L (22-32); Calcium 10.5 mg/dL (8.6-10.3); Chloride 102 mmol/L (101-111); Creatinine, Serum 1.33 mg/dL (0.67-1.17); Globulin 2.7 g/dL (2-4); Glucose 107 mg/dL (70-100); Potassium 4.3 mmol/L (3.5-5.0); Salicylate < 2.50 mg/dL (<30); Sodium 139 mmol/L (135-145); Total Bilirubin 0.2 mg/dL (0.2-1.0); Total Protein 7.6 g/dL (6.4-8.9); eGFR CKD-EPI 75.6 (>60)
[2024-04-09] MEDS: CENOBAMATE 100 MG PO ONE (22:17)
[2024-04-09] MEDS: PERAMPANEL 4 MG PO ONE (22:17)
[2024-04-09] MEDS: CENOBAMATE 150 MG PO ONE (22:17)
[2024-04-09] MEDS ORDERED: LORazepam 2 mg VIAL 1 ml ONE ×2 (22:53→23:09)
[2024-04-10] MEDS: LORazepam 2 mg VIAL 1 ml IV PUSH SCH (00:14)
[2024-04-10] MEDS: LORazepam 2 mg VIAL 1 ml IV PUSH PRN (00:22)
[2024-04-10] MEDS: Lactated Ringers 1000 ml BAG 1,000 ML IV SCH (00:28)
[2024-04-10 02:11] LABS: Magnesium 1.8 mg/dL (1.9-2.7); Phosphorus 3.1 mg/dL (2.5-5.0)
[2024-04-10] MEDS: Ondansetron ODT 4 mg TAB 4 MG TAB SL PRN (02:27)
[2024-04-10] MEDS: diazePAM INJ CARPUJECT 5 MG/ML SYRINGE IV ONE (02:41)
[2024-04-10] MEDS ORDERED: Lorazepam PYXIS KEY PRN (02:52)
[2024-04-10] MEDS: LORazepam 2 mg VIAL 1 ml IV PUSH ONE (02:58)
[2024-04-10 05:39] LABS: ABS Basophils 0.1 10^3/uL (0.0-0.1); ABS Monocytes 0.5 10^3/uL (0.0-1.1); ABS Neutrophils 6.2 10^3/uL (1.5-7.6); ABS Nucleated RBC 0.01 10^3/ul; Eosinophil % 0.2 %; Hematocrit 39.7 % (38-53); Hemoglobin 12.9 g/dL (13.2-16.3); Lymphocyte % 30.4 %; Mean Corpuscular Hemoglobin 24.3 pg (27-33); Mean Corpuscular Hgb Conc 32.5 g/dL (31-36); Mean Corpuscular Volume 74.8 fL (80-97); Mean Platelet Volume 7.2 fL (7.5-11.2); Nucleated Red Blood Cells % 0.1 %/100WBC (0.0-0.8); Platelet Count 408 10^3/uL (150-450); Red Cell Distribution Width 16.4 % (12-17); White Blood Count 9.8 10^3/uL (3.6-10.2)
[2024-04-10 05:52] LABS: Albumin 4.6 g/dL (3.2-5.2); Albumin/Globulin Ratio 1.8 (1-3); Calcium 9.2 mg/dL (8.6-10.3); Creatinine, Serum 1.2 mg/dL (0.67-1.17); Globulin 2.6 g/dL (2-4); Magnesium 1.7 mg/dL (1.9-2.7); Phosphorus 3.5 mg/dL (2.5-5.0); Potassium 4.2 mmol/L (3.5-5.0); Total Bilirubin 0.2 mg/dL (0.2-1.0); Total Protein 7.2 g/dL (6.4-8.9); eGFR CKD-EPI 85.5 (>60)
[2024-04-10] MEDS: Magnesium Sulfate 2 gm BAG 2 GM/50 ML BAG IVPB ONE (08:31)
[2024-04-10] MEDS ORDERED: LORazepam 2 mg VIAL 1 ml IV PUSH PRN (09:33)
[2024-04-10] MEDS: LORazepam 2 mg VIAL 1 ml ONE (09:38)
[2024-04-10] MEDS: Enoxaparin 40 MG/0.4 ML SYR SUBCUT SCH (11:03)
[2024-04-10] MEDS ORDERED: CENOBAMATE 100 MG PO SCH ×2 (11:20→22:30)
[2024-04-10] MEDS: CENOBAMATE 200 MG PO SCH (12:03)
[2024-04-10 14:29] VITALS: BP 108/57
[2024-04-10] MEDS ORDERED: CENOBAMATE 50 MG PO SCH (21:00)
[2024-04-10] MEDS ORDERED: PERAMPANEL 2 MG PO SCH (21:00)
[2024-04-10] MEDS ORDERED: CENOBAMATE 200 MG PO SCH (22:30)
== END 2024-04-10 15:25 | disposition home or self-care (01) | DRG 53 ==
LOC: EDHOLD 20:27 → ED 20:27 → ICU 23:20
PROVIDERS: ADMIT Internal Medicine; ATTEND Internal Medicine